=== PATIENT | male | born 1940 | race Caucasian/White ===

== ENCOUNTER 2016-05-10 09:41 | Outpatient (CLI) | payer OTHER ==
[~2016-05-10] VITALS: Ht 170.2 cm; Wt 96.4 kg
[~2016-05-10 09:41] MED LIST: ASPI-676 PO; BENA20TA48 PO; CARV3.1238 PO; OMEP40CA6 PO; SAW1CAPS3 PO; SMV40T PO; SULF-182 PO
[2016-05-10 10:00] VITALS: BP 144/69; PULSE 81; RESP 18; Ht 170.2 cm; Wt 96.4 kg
[2016-05-10] MEDS ORDERED: LOSA25TA5 PO (10:15)
--- NOTE | 2016-05-10 11:50 | CONS ---
[facility] INITIAL OUTPATIENT CONSULTATION NOTE DATE OF CONSULTATION: 05/10/2016 PLACE OF SERVICE: [facility] ASSESSMENT AND PLAN: A very pleasant 75-year-old gentleman well known to me from his prior emergency operation in September 2013 for colonic obstruction due to diverticulitis and no evidence of malignancy where the incision was complicated initially with a wound infection and then not surprisingly had a hernia develop within a year. Despite the fact that his hernia has been relatively stable it has become more symptomatic in nature and given the natural history of this process I have recommended that the patient strongly consider surgical intervention. I reviewed the options of surgical intervention including the operation in detail as well as the risks, benefits and alternatives. This included a detailed discussion of use of mesh and its accompanying complications that are possible. We also discussed the higher than normal risk of recurrence of hernia in this clinical setting. We also discussed in depth the option of not operating at this time and its concomitant risks, benefits and alternatives. After careful consideration, I believe that the patient understands and wishes to proceed with surgery. With above assessment, I recommend the followin. Repeat CT scan of abdomen and pelvis with IV and oral contrast. 2. Schedule the patient for elective laparoscopic and possible open incisional ventral hernia repair with possible use of mesh. 3. Follow up preoperative visit if indicated by above CT scan or if the patient wishes to further discuss along with family. 4. Discussion with Dr. Kirby regarding his cardiac risk, although, his note clearly states that there are no other interventions that are needed at this time. 5. Likely need for overnight observation in house given cardiac risk and for this reason we should get authorization for possible inpatient stay depending on the patient's course. Thank you again for allowing us to participate in the care of this very pleasant gentleman and his wonderful family. If there are any questions, please feel free to call me at [phone]. TOTAL VISIT TIME: 45 minutes of which more than half was spent in [id number] discussion with the patient as well as coordination of care between multiple physicians and providers. UPDATED CLINICAL SUMMARY: A very pleasant 75-year-old gentleman with comorbid issues of coronary artery disease and previous myocardial infarction, BMI of 33.3, and history of colonic obstruction due to diverticulitis status post emergency surgery at [facility] on 10/17/2013 where he underwent laparoscopic converted to open sigmoid colectomy with on-table lavage and primary anastomosis. He did reasonably well after this operation, although, he had a wound infection which we treated with dressing changes postoperatively. The patient subsequent to this has developed a bulge around the incision which on a CT scan of the abdomen and pelvis that was done on 05/18/2014 showed a small midline ventral pelvic hernia extending into the lower inferior pelvic pannus containing mesenteric fat as well as a loop of bowel without obstruction, incarceration or strangulation. Note that there was also no mass or lymphadenopathy and the sigmoid colon area appeared to be clean. There was also markedly enlarged prostate gland, which has been stable over time. The patient originally saw Dr. Anju Marie from [facility] in May 2014 where recommendation was made for surgical repair. Subsequent to this, the patient did not have an operation and presented electively to the office for further discussions about possible surgical repair. COMORBIDITIES: 1. Coronary artery disease with chronic ischemic heart disease without any evidence of ischemia or CHF symptoms. He was deemed eligible to undergo herniorrhaphy with low cardiac risk. Had a normal stress echo in 2014. 2. Chronic ischemic heart disease which is stable with medications. 3. Essential hypertension. 4. Hyperlipidemia. 5. Chronic obstructive pulmonary disease. 6. Chronic kidney disease stage II with GFR 60 to 89 mL per minute. 7. History of above-mentioned bowel obstruction due to diverticulitis, status post laparoscopic converted to open sigmoid colectomy with on-table lavage and primary anastomosis on 10/17/2013 at [facility] by me, complicated by incisional infection which was treated with dressing changes and secondary intention healing and then complicated within about a year with incisional hernia which has been symptomatic, but rather stable over time. 8. BMI 33.3. 9. History of diverticulosis in the past. 10. History of anemia. HISTORY OF PRESENT ILLNESS: The patient is a very pleasant 75-year-old gentleman well known to me from his admission to [facility] in September of 2013 where he had to have an emergency sigmoid colectomy due to large bowel obstruction. This was complicated by wound infection and then subsequent to this had an incisional hernia which was evaluated in 2014. He was kindly referred back to us for further consideration of surgical repair. Note that the patient also saw Dr. Anju Marie who also recommended surgical repair and had an extensive discussion with the patient regarding the risks and benefits of operative versus nonoperative management. Patient himself reports having discomfort in the right lower quadrant next to his incision. He does not report any episode of bowel obstruction and other than discomfort he has not had any other major problems from his hernia. He does feel a bulge and it is starting to affect the quality of his life. ALLERGIES: 1. BENAZEPRIL. 2. HALLUCINATIONS ON MORPHINE. MEDICATIONS: 1. Aspirin. 2. B12. 3. Carvedilol. 4. Losartan. 5. Omeprazole. 6. Saw palmetto. 7. Simvastatin. SOCIAL HISTORY: The patient is and lives by himself. He has family. He does not report any smoking, drinking, or intravenous drug abuse. He has smoked in the past and quit about 12 years ago. FAMILY HISTORY: No major medical, surgical or oncologic problems in the family. REVIEW OF SYSTEMS: Other than the above-mentioned, there are no other pertinent positives or pertinent negatives in a complete 14-point review of systems. PHYSICAL EXAMINATION: GENERAL: The patient appears to be a very pleasant gentleman of descent, appearing stated age, sitting in a chair comfortably and in no acute distress. BMI is 33.3. VITAL SIGNS: Temperature 98.1. Blood pressure 144/69. Pulse 81. Respiratory rate 18. Pulse oximetry 93% on room air. HEENT: Normocephalic and atraumatic. Extraocular muscles and hearing are grossly intact bilaterally and symmetrically. Sclerae are nonicteric. Oral cavity is clear; oral mucosa appeared to be pink and moist. Dentition: fair to poor with upper dentures in place. NECK: Supple. There is no lymphadenopathy or JVD. There is no submental, submandibular or supraclavicular lymphadenopathy. CHEST: Rises symmetrically with each breath; patient is breathing comfortably. There are no audible wheezes, rales or rhonchi on the gross exam. HEART: Pulse is regular and palpable on the right wrist. Capillary refill was normal. Carotid pulses are palpable bilaterally and symmetrically in the neck. EXTREMITIES: Lower extremities contain no pitting edema around the ankles bilaterally and symmetrically. ABDOMEN: There is a well-healed midline scar with no evidence of erythema, edema, discharge, but evidence of slight bulge in the caudal portion of the incision slightly to the right of the incision and bulging out with more Valsalva maneuvers. Abdomen is otherwise soft, nontender and nondistended and there are no peritoneal signs or guarding. There is no evidence of organomegaly , caput medusae, engorged subcutaneous veins, or ascites. SKIN: Appears to be pink and feels warm to touch. NEUROLOGIC: Awake, alert, and follows commands appropriately. LABORATORY DATA: On 05/06/2016 electrolytes showed potassium of 5.0, CO2 of 25 , albumin 4.2, creatinine 0.94. Bilirubin 0.4, AST 18, ALT 14, alkaline phosphatase 106. Bilirubin 0.4. GFR 78, lipid panels normal, parathyroid hormone 58 and considered normal. IMAGING: Reviewed above. Dictated By: LOBITO GARRISON MD KK/NTS Conf#: [id number] DID#: [id number] CC: KIEL MOREJON MD; ANJU MARIE MD; LINDSEY KIRBY MD;*EndCC* MTDD
--- NOTE | 2016-05-11 10:50 | PN ---
DATE: The patient is clinically stable. He has no abdominal complaints whatsoever. The procedure was described again to the patient and who had excellent understanding and are most anxious to proceed. The procedure is scheduled for 9 :30 tomorrow morning. Dictated By: CHRISTIANO ESPINO/OTONIEL Conf#: [id number] DID#: [id number] MTDD
== END 2016-05-10 16:48 | disposition home or self-care (01) ==
LOC: HPC 09:41
PROVIDERS: ATTEND Transplant Surgery
DX: I25.10 Atherosclerotic heart disease of native coronary artery without angina pectoris (principal); J44.9 Chronic obstructive pulmonary disease, unspecified; I12.9 Hypertensive chronic kidney disease with stage 1 through stage 4 chronic kidney disease, or unspecified chronic kidney disease; N18.2 Chronic kidney disease, stage 2 (mild); E78.5 Hyperlipidemia, unspecified; Z79.82 Long term (current) use of aspirin
CPT/HCPCS: G0463

== ENCOUNTER 2016-05-25 07:15 | Inpatient (IN) | payer OTHER ==
[~2016-05-25] VITALS: Ht 170.2 cm; Wt 96.0 kg
[2016-05-25] VITALS (24 sets, daily range): BP systolic 146–177; BP diastolic 71–86; PULSE 58–82; RESP 10–20; Ht 170.2 cm; Wt 96.0 kg
[2016-05-25] MEDS: D5W-0.45 NACL + KCL 20 MEQ 1,000 ML IV SCH ×3 (06:30→21:35)
[~2016-05-25 07:15] MED LIST changes: -BENA20TA48 PO; +CEFAZOLIN 2 GM/50 ML (PMX) 50 ML IVPB SCH; +LOSA25TA5 PO; +ROCURONIUM 50 MG INJ ONE; -SULF-182 PO
[2016-05-25] MEDS ORDERED: AMOX1TAB9 PO (08:34)
[2016-05-25] MEDS ORDERED: POLYMYXIN/BACITRACIN 1L IRRIG ONE (08:57)
[2016-05-25] MEDS ORDERED: LIDOCAINE 2% (SDV) 5 ML INJ ONE (09:05)
[2016-05-25] MEDS ORDERED: PROPOFOL 20 ML ONE (09:05)
[2016-05-25] MEDS ORDERED: BUPIVACAINE 0.25%/EPI (SDV) 30 ML INJ ONE (09:10)
--- NOTE | 2016-05-25 09:20 | HPN ---
Date/Time of Note Date/Time of Note DATE: 05/25/16 TIME: 09:20 Interval H&P Admission Note Pt. seen H&P reviewed: No system changes Pt. seen H&P reviewed. No system changes (I attest that I have seen and examined the patient and reviewed the operation in detail, as well as its risks , benefits and alternatives of the operation). I attest that I have seen and examined the patient and reviewed in detail the operation, and its associated risks, benefits and alternative. I have answered all the patient's questions to the best of my ability and the patient wishes to proceed. Please refer to rest of electronic medical record for additional updates. LOBITO GARRISON M.D. May 25, 2016 09:20
[2016-05-25] MEDS ORDERED: ATROPINE 1 MG/10 ML SYRINGE ONE (10:19)
[2016-05-25] MEDS ORDERED: LABETALOL HCL 20MG INJ ONE (10:33)
[2016-05-25] MEDS ORDERED: GLYCOPYRROLATE 1 MG INJ ONE (10:58)
[2016-05-25] MEDS ORDERED: CEFAZOLIN 1 GM INJ ONE (10:58)
[2016-05-25] MEDS ORDERED: METOPROLOL 5 MG INJ ONE (10:58)
[2016-05-25] MEDS ORDERED: NEOSTIGMINE 3 MG/3 ML SYRINGE ONE (10:58)
[2016-05-25] MEDS ORDERED: OXYCODONE/ACETAMINOPHEN (5/325) TAB PO PRN ×2 (13:00)
[2016-05-25] MEDS ORDERED: ONDANSETRON 4 MG INJ IV PRN (13:00)
[2016-05-25] MEDS ORDERED: FENTAnyl 50 MCG/ML VIAL IV PRN ×3 (13:00)
[2016-05-25] MEDS ORDERED: MEPERIDINE 25 MG INJ IV PRN (13:00)
[2016-05-25] MEDS ORDERED: EPHEDrine SULFATE 50 MG/5 ML SYG IV PRN (13:00)
[2016-05-25] MEDS ORDERED: HYDROmorphONE (0.2 MG/ML) 10ML SYG IV PRN ×3 (13:00)
[2016-05-25] MEDS ORDERED: hydrALAzine 20 MG INJ IV PRN (13:00)
[2016-05-25] MEDS: LABETALOL HCL 20MG INJ IV PRN ×2 (13:53→14:01)
--- NOTE | 2016-05-25 14:15 | OPR ---
Date/Time of Note Date/Time of Note DATE: 05/25/16 TIME: 14:15 Operative Report Operative\Procedure Findings [facility] INPATIENT [facility]PERATIVE NOTE PLACE OF SERVICE: [facility] DATE OF SURGERY: 05/25/2016 PREOPERATIVE DIAGNOSIS: 1. Incisional ventral hernia; history of bowel obstruction due to diverticulitis, status post laparoscopic converted to open sigmoid colectomy with on-table lavage and primary anastomosis on 10/17/2013 at [facility] by hi, complicated by incisional infection which was treated with dressing changes and secondary intention healing and then complicated within about a year with incisional hernia which has been symptomatic, but rather stable over time. 2. Coronary artery disease with chronic ischemic heart disease without any evidence of ischemia or CHF symptoms. He was deemed eligible to undergo herniorrhaphy with low cardiac risk. Had a normal stress echo in 2014. 3. Chronic ischemic heart disease which is stable with medications. 4. Essential hypertension. 5. Chronic obstructive pulmonary disease. 6. Chronic kidney disease stage II with GFR 60 to 89 mL per minute. 7. Hyperlipidemia. 8. BMI 33.3. 9. History of diverticulosis in the past. 10. History of anemia. POSTOPERATIVE DIAGNOSIS: 1. Incisional ventral hernia; history of bowel obstruction due to diverticulitis, status post laparoscopic converted to open sigmoid colectomy with on-table lavage and primary anastomosis on 10/17/2013 at [facility] by hi, complicated by incisional infection which was treated with dressing changes and secondary intention healing and then complicated within about a year with incisional hernia which has been symptomatic, but rather stable over time. 2. Coronary artery disease with chronic ischemic heart disease without any evidence of ischemia or CHF symptoms. He was deemed eligible to undergo herniorrhaphy with low cardiac risk. Had a normal stress echo in 2014. 3. Chronic ischemic heart disease which is stable with medications. 4. Essential hypertension. 5. Chronic obstructive pulmonary disease. 6. Chronic kidney disease stage II with GFR 60 to 89 mL per minute. 7. Hyperlipidemia. 8. BMI 33.3. 9. History of diverticulosis in the past. 10. History of anemia. OPERATION: Laparoscopic, converted to open complex repair of ventral incisional hernia with mesh, retrorectus repair (Ventralight ST 10.2 x 15.2 cm) SURGEON: Lobito Garrison M.D. YACHT HAND: None ANESTHESIA: General endotracheal tube anesthesia ANESTHESIOLOGIST: Antwan Hamm M.D. BRIEF SUMMARY: An otherwise uncomplicated but somewhat complex laparoscopic converted to open repair of ventral incisional hernia of the most caudal portion of the patient's incision was performed using retrorectus approach with mesh reinforcement with findings of 3 x 3 cm defect but in the lower rectus area requiring complex repair. UPDATED CLINICAL SUMMARY: A very pleasant 75-year-old gentleman with comorbid issues of coronary artery disease and previous myocardial infarction, BMI of 33.3, and history of colonic obstruction due to diverticulitis status post emergency surgery at [facility] on 10/17/2013 where he underwent laparoscopic converted to open sigmoid colectomy with on-table lavage and primary anastomosis. He did reasonably well after this operation, although, he had a wound infection which we treated with dressing changes postoperatively. The patient subsequent to this has developed a bulge around the incision which on a CT scan of the abdomen and pelvis that was done on 05/18/2014 showed a small midline ventral pelvic hernia extending into the lower inferior pelvic pannus containing mesenteric fat as well as a loop of bowel without obstruction, incarceration or strangulation. Note that there was also no mass or lymphadenopathy and the sigmoid colon area appeared to be clean. There was also markedly enlarged prostate gland, which has been stable over time. The patient originally saw Dr. Luke Martinez from [facility] in May 2014 where recommendation was made for surgical repair. Subsequent to this, the patient did not have an operation and presented electively to the office for further discussions about possible surgical repair. COMORBIDITIES: 1. Coronary artery disease with chronic ischemic heart disease without any evidence of ischemia or CHF symptoms. He was deemed eligible to undergo herniorrhaphy with low cardiac risk. Had a normal stress echo in 2014. 2. Chronic ischemic heart disease which is stable with medications. 3. Essential hypertension. 4. Hyperlipidemia. 5. Chronic obstructive pulmonary disease. 6. Chronic kidney disease stage II with GFR 60 to 89 mL per minute. 7. History of above-mentioned bowel obstruction due to diverticulitis, status post laparoscopic converted to open sigmoid colectomy with on-table lavage and primary anastomosis on 10/17/2013 at [facility] by me, complicated by incisional infection which was treated with dressing changes and secondary intention healing and then complicated within about a year with incisional hernia which has been symptomatic, but rather stable over time. 8. BMI 33.3. 9. History of diverticulosis in the past. 10. History of anemia. BRIEF HISTORY: The patient is a very pleasant 75-year-old gentleman who is well- known to me presenting with incisional ventral hernia. This was certainly due to patient's complex surgical history as mentioned above and certainly was helped by the postoperative infection of the patient had at that time. The patient has been symptomatic from the hernia and at this point, I had recommended that the patient undergoes a laparoscopic, possible open repair of this hernia, possibly with mesh. I met with the patient (no family present during my initial discussions with the patient but then I reviewed everything with them in the preoperative area) and counseled them regarding the possible options of treatment. We reviewed the operation in detail as well as the risks, benefits, alternatives, and expected outcomes of this operation. After careful consideration of all the risks, benefits, and alternatives, the patient and family appeared to understand those risks and wished to proceed with surgery. For a detailed report of my consultation with patient and family, please refer to my separate consultation note. STATEMENT OF THE INFORMED CONSENT: The patient and family appeared to understand the risks of the operation to include, but not be limited to risk of postoperative pain and scar tissue, possible infection or bleeding requiring other interventions such as opening the wound, placement of drainage catheters, or other operative interventions; possible injury to surrounding to structures including bowel, bladder, bile duct, or blood vessels, or solid organs such as liver, kidney, or pancreas requiring other interventions or procedures; possible recurrence of the ventral hernia, infection of the wound, or even infection of the mesh, causing significant increase in morbidity and mortality and requiring multiple interventions including but not limited to, placement of drainage catheters, imaging studies, as well as operative interventions; possible other source of sepsis such as urinary tract infections or pneumonias, or other sources of potentially life threatening problems such as deep venous thrombus formation causing pulmonary embolism, myocardial arrhythmias and infarctions, and even . We also briefly discussed the potential need to receive blood products and their potential complications of blood transfusion reactions, transmission of infections, or other complications. After careful consideration of all their options, the patient and family appeared to understand and wished to proceed with surgery. DESCRIPTION OF PROCEDURE: After obtaining informed consent, the patient was brought into the operating room and was placed in a normal supine position, where successful general endotracheal tube anesthesia was performed. The patient 's abdominal skin was prepped and draped, from the nipple line down to the level of the groins, in the usual sterile fashion. Intravenous access was already in place, and appropriately chosen and dosed prophylactic intravenous antimicrobials were administered. We then called a surgical time-out where patient's identification, date of , nature of the operation, allergies, presence of intravenous antimicrobials, presence of needed equipment, and any other concerns were reviewed and agreed upon by all members of the operating room team. We then started the operation by placing a 5-mm skin incision in the leftt- upper quadrant, subcostal midclavicular line, and introduced a 5-mm [employer] trocar into the peritoneal space, visualizing all the layers of the abdominal wall as we entered. Note that there was no indication of any injury to underlying structures once we entered the peritoneum. We insufflated the abdominal cavity to a maximum pressure of 15 mmHg, again, confirmed lack of any injury to underlying structures prior to visualizing the rest of the abdominal cavity. We found significant amount of adhesions in the abdominal cavity which was expected from the patient's complex previous surgical history. There were no good windows for continuation with laparoscopic approach and for this reason I abandoned the laparoscopic approach and proceeded to open the most caudal portion of the skin incision approximately 10 cm in the infraumbilical space using scalpel to go through the skin and then very careful dissection with cautery as well as cold scissors to then delineate the midline fascia. Using very meticulous technique we open the lower portion of the fascia and dissected the bowel from underneath the abdominal wall using cold scissors. We were able to identify the right lower fascial defect which was approximately 3 x 3 cm in the area of the anterior rectus sheath. We then developed the plane the anterior rectus sheath from the underlying muscle in a circumferential fashion 360 around the open fascial defect. Once we had adequate margins (approximately 3 cm at a minimum circumferentially), we closed the underlying peritoneum followed by reapproximation of the rectus muscles in the midline in the suprapubic area. Care was taken not to injure the bladder or any other underlying structures. We then washed the wounds with copious amounts of normal saline and then placed a Ventralight ST mesh (10.2 x 15.2 cm) above the muscle layer and then closed the anterior rectus sheath after appropriate dissection was made in the subcutaneous fat in order to create a tension-free closure of the fascia using interrupted #1 PDS sutures. We grabbed the midline with the #1 PDS sutures while keeping the mesh flat throughout the closure process. We also fixed the corners of the mesh under direct visualization using 2-0 PDS suture through the anterior rectus muscle having the mesh secured in place. This all went very well without any undue tension on the fascia. We then washed the area with copious amounts normal saline and reapproximated the bottom layer of the fat in order to obliterate the potential space prior to closure of the skin using running 4-0 Monocryl suture. We also closed the initial 5 mm skin incision site with 4-0 Monocryl suture and injected all incisions with quarter percent Marcaine with epinephrine. Light dressing was then applied. At the end of the operation, both the sponge count and needle count were reportedly correct x2. The patient tolerated the procedure without any reported complications. ESTIMATED BLOOD LOSS: Less than 10 mL. BLOOD OR BLOOD PRODUCT TRANSFUSIONS: None to my knowledge. SPECIMENS: None. COMPLICATIONS: None. DISPOSITION: Recovery area. Disclaimer: Inadvertent spelling and grammatical errors are likely due to EHR/ dictation software use and do not reflect on the quality of delivered patient care. LOBITO GARRSION M.D. May 25, 2016 14:15
[2016-05-25] MEDS ORDERED: BISACODYL 10 MG SUPP PR PRN ×2 (17:00→18:00)
[2016-05-25] MEDS ORDERED: DOCUSATE SODIUM 100 MG CAP PO PRN ×2 (17:00→18:00)
[2016-05-25] MEDS ORDERED: D5W-0.45 NACL + KCL 20 MEQ 1,000 ML IV SCH (17:35)
[2016-05-25] MEDS ORDERED: NA PHOSPHATE/BIPHOS 133 ML ENEMA PR PRN (18:00)
[2016-05-25] MEDS ORDERED: HYDROmorphONE 1 MG/ML SYG IV PRN (18:00)
[2016-05-25] MEDS ORDERED: HYDROCODONE/APAP (5/325) TAB PO PRN ×4 (18:00→19:00)
[2016-05-25] MEDS: HYDROmorphONE 1 MG/ML SYG IV PRN (19:42)
[2016-05-25] MEDS: ONDANSETRON 4 MG INJ IV PRN (21:25)
[2016-05-26] VITALS (8 sets, daily range): BP systolic 137–179; BP diastolic 65–86; PULSE 90–99; RESP 18–22
[2016-05-26] MEDS: HYDROmorphONE 1 MG/ML SYG IV PRN (04:43)
[2016-05-26] MEDS: ONDANSETRON 4 MG INJ IV PRN ×3 (04:43→17:25)
[2016-05-26 04:54] LABS: ADD SCAN DIFF NO
[2016-05-26 05:00] LABS: ABNORMAL IP MESSAGE 1; BASOPHILS % 0.1 % (0.0-2.0); EOSINOPHILS % 0.2 % (0.0-7.0); HEMOGLOBIN 13.8 g/dl (14.0-18.0); LYMPHOCYTES # 1.7 10^3/ul (0.8-2.9); LYMPHOCYTES % 10.6 % (15.0-51.0); MEAN CORPUSCULAR HEMOGLOBIN 31.2 pg (29.0-33.0); MEAN CORPUSCULAR HGB CONC 32.9 g/dl (32.0-37.0); MEAN CORPUSCULAR VOLUME 94.8 fl (82.0-101.0); MEAN PLATELET VOLUME 10.1 fl (7.4-10.4); MONOCYTE # 1.9 10^3/ul (0.3-0.9); NEUTROPHIL # 11.9 10^3/ul (1.6-7.5); NEUTROPHILS % 76.8 % (39.0-77.0); PLATELET COUNT 191 10^3/UL (140-415); RED BLOOD COUNT 4.43 10^6/ul (4.70-6.10); RED CELL DISTRIBUTION WIDTH 12.6 % (11.5-14.5); WHITE BLOOD COUNT 15.5 10^3/ul (4.8-10.8)
[2016-05-26 05:11] LABS: INR 1.13; PROTIME 14.5 Sec (12.2-14.2); PT RATIO 1.1
[2016-05-26 05:12] LABS: PARTIAL THROMBOPLASTIN TIME 29.9 Sec (25.0-35.0)
[2016-05-26 05:13] LABS: ALBUMIN 3.5 g/dl (3.3-4.9)
[2016-05-26 05:14] LABS: POTASSIUM 4.3 mmol/L (3.5-5.1)
[2016-05-26 05:16] LABS: ALBUMIN/GLOBULIN RATIO 0.97; BILIRUBIN,INDIRECT 0.5 mg/dl (0-1.1); BILIRUBIN,TOTAL 0.5 mg/dl (0.2-1.3); CREATININE 0.8 mg/dl (0.61-1.24); TOTAL PROTEIN 7.1 g/dl (6.1-8.1)
[2016-05-26 05:17] LABS: CALCIUM 8.4 mg/dl (8.4-10.2); MAGNESIUM 1.8 mg/dl (1.7-2.5); PHOSPHORUS 2.9 mg/dl (2.5-4.9)
[2016-05-26] MEDS: hydrALAzine 20 MG INJ IV PRN ×2 (05:19→19:28)
[2016-05-26] MEDS: AL HYDROX/MG HYDROX/SIMETH 30 ML CUP PO PRN (07:05)
[2016-05-26] MEDS ORDERED: hydrALAzine 20 MG INJ IV PRN (07:30)
[2016-05-26] MEDS: D5W-0.45 NACL + KCL 20 MEQ 1,000 ML IV SCH ×3 (07:36→17:25)
--- NOTE | 2016-05-26 08:24 | CONS ---
DATE OF ADMISSION: 05/25/2016 DATE OF CONSULTATION: REASON FOR CONSULTATION: Medical management. HISTORY OF PRESENT ILLNESS: The patient is 75-year-old male with a history of coronary artery diseas e, hypertension, dyslipidemia, COPD and a history of bowel obstruction due to diverticulitis, who is now status post laparoscopic converted to open complex repair of a ventral incisional hernia with [facility]. A consult was placed for medical management. The patient currently complains of some nausea a nd also some burning sensation on urination. He denied any chest pain or shortness of breath. His vitals show that his blood pressure is not within goal, but the rest of his vitals are stable. REVIEW OF SYSTEMS: A 12-point review of systems was performed and negative except as mentioned in t he HPI. PAST MEDICAL HISTORY: As per HPI. PAST SURGICAL HISTORY: As per HPI. SOCIAL HISTORY: Denied a history of tobacco, alcohol or illicit drug use. ALLERGIES: BENAZEPRIL. HOME MEDICATION: 1. Coreg. 2. Losartan. 3. Zocor. 4. Aspirin. 5. Prilosec. 6. Saw palmetto. PHYSICAL EXAMINATION: VITAL SIGNS: Blood pressure 146/77, heart rate 73, respiratory rate 20, temperature 98.5, oxygen sa turation 95% on room air. GENERAL: The patient is slightly sleepy, but arousable. He looks slightly uncomfortable. HEENT: No obvious head deformity. Pupils are reactive to light. Extraocular muscles are intact. CARDIOVASCULAR: Regular rate and rhythm. No extra sounds. LUNGS: Clear anteriorly. ABDOMEN: Surgical site covered. There is tenderness to touch. No rigidity. EXTREMITIES: No edema. LABORATORY: Currently pending. IMPRESSION: 1. Open ventral incisional hernia repair. 2. Hypertension. Not at goal. 3. History of coronary artery disease. 4. History of chronic obstructive pulmonary disease. 5. History of dyslipidemia. PLAN: Continue current medical management. Continue to adjust his pain medication as needed. Will adjust his antihypertensives for better blood pressure control, since it is not at goal. Will foll ow up on basic labs in the morning. Given his complaint of a burning sensation on urination, will s end a urinalysis. Correct electrolytes as needed. Management of his surgical needs per Dr. Ca. Dictated By: KAUSHIK LASSITER/OTONIEL Conf#: [id number] [facility]#: [id number]
[2016-05-26] MEDS ORDERED: LOSARTAN 25 MG TAB PO SCH (09:00)
[2016-05-26] MEDS ORDERED: FAMOTIDINE 20 MG INJ IV SCH (09:00)
[2016-05-26] MEDS: LOSARTAN 25 MG TAB PO SCH (09:06)
[2016-05-26] MEDS: ENOXAPARIN 40 MG/0.4 ML SYG SC SCH (09:08)
[2016-05-26] MEDS: FAMOTIDINE 20 MG INJ IV SCH ×2 (09:09→20:51)
[2016-05-26] MEDS ORDERED: ALBUTEROL/IPRATROPIUM (NEB) 3 ML AMP HHN PRN (12:00)
--- NOTE | 2016-05-26 12:39 | CONS ---
DATE OF ADMISSION: 05/25/2016 DATE OF CONSULTATION: 05/26/2016 CONSULT PROGRESS NOTE SUBJECTIVE: The patient had some nausea symptoms earlier today, given Zofran. Per nursing staff is having minimal p.o. intake. Has not passed gas yet. Otherwise stable. Blood pressure is under be tter control. OBJECTIVE: VITAL SIGNS: Temperature max 99.9, pulse 73 to 102, respirations 18 to 20, blood pressure is 176 to 141 systolic/86 to 70 diastolic, saturating at 94% to 97% on 2 liters nasal cannula. GENERAL: The patient lying in bed, no acute distress. HEENT: Pupils equal, round, react to light. Extraocular muscles intact. NECK: Supple, no thyromegaly. LUNGS: Clear to auscultation bilaterally. CARDIOVASCULAR: S1, S2 heard. No rubs or gallops. ABDOMEN: Hypoactive bowel sounds, slightly distended. No rebound or guarding. MUSCULOSKELETAL: No lower extremity edema bilaterally. NEUROLOGIC: No focal deficits. LABORATORY DATA: WBC 15.5, hemoglobin 13.8, hematocrit 42, platelets 191. Comprehensive metabolic panel was normal. Coags essentially normal. ASSESSMENT AND PLAN: A 75-year-old male with past medical history of coronary artery disease, hyper tension, high cholesterol, chronic obstructive pulmonary disease, prior bowel obstruction from diver ticulitis, who is: 1. Status post open ventral incisional hernia repair, postop day #1. Continue current medical man agement per primary care team including pain control medications, physical therapy. 2. Essential hypertension, slightly improved. Continue losartan and Coreg. 3. History of coronary artery disease. Continue to monitor for now. 4. History of chronic obstructive pulmonary disease. DuoNeb p.r.n. 5. Leukocytosis, likely reactive secondary to the surgery, although he did have a temperature of 99 .9. We will follow up UA and urine culture results as well. Continue to monitor for now. If worse ns, consider further workup for that. 6. Gastrointestinal prophylaxis: Pepcid. 7. Deep venous thrombosis prophylaxis: Lovenox. 8. High cholesterol. Continue statin. We will continue to follow along with you. Dictated By: PAZ WORLEY Conf#: [id number] DID#: [id number]
[2016-05-26 14:03] LABS: ADD UMIC YES; URINE BILIRUBIN (Dip) NEGATIVE (NEGATIVE); URINE BLOOD (Dip) 1+ (NEGATIVE); URINE COLOR LT. YELLOW (YELLOW); URINE GLUCOSE (Dip) NEGATIVE (NEGATIVE); URINE KETONES (Dip) NEGATIVE (NEGATIVE); URINE LEUKOCYTE ESTERASE (Dip) NEGATIVE (NEGATIVE); URINE NITRITE (Dip) NEGATIVE (NEGATIVE); URINE TOTAL PROTEIN (Dip) NEGATIVE (NEGATIVE); URINE UROBILINOGEN (Dip) 0.2 E.U./dL (0.1-1.0)
[2016-05-26 14:24] LABS: BACTERIA,URINE RARE
--- NOTE | 2016-05-26 15:48 | PN ---
Date/Time of Note Date/Time of Note DATE: 05/26/16 TIME: 15:44 Assessment/Plan Lines/Catheters IV Catheter Type (from Nrsg): Peripheral IV Crouch in Place (from Nrsg): No Assessment/Plan Assessment/Plan [facility] Progress Note Date of Service: 05/26/16 Today's Impression & Plan: Overall stable. Issues with pain control, lack of adequate return of bowel function or oral intake, urinary retention post open and complex hernia repair. Will need to stay inhouse for now. With above assessment, I've recommended the following for today: 1. Keep inhouse 2. Labs in am 3. Increase activity 4. Increase ICS Thank you again for your great care of this very pleasant patient and wonderful family. If there are any questions, please feel free to call me at [phone]. TOTAL VISIT TIME: 20 minutes of which more than half was spent in [id number] discussion with the patient, possibly including family, as well as coordination of care between multiple physicians and providers. Disclaimer: Inadvertent spelling or grammatical errors are likely due to EHR/ dictation software use and do not reflect on the overall quality of patient care. Updated Clinical Summary: A very pleasant 75-year-old gentleman with comorbid issues of coronary artery disease and previous myocardial infarction, BMI of 33.3, and history of colonic obstruction due to diverticulitis status post emergency surgery at [facility] on 10/17/2013 where he underwent laparoscopic converted to open sigmoid colectomy with on-table lavage and primary anastomosis. He did reasonably well after this operation, although, he had a wound infection which we treated with dressing changes postoperatively. The patient subsequent to this has developed a bulge around the incision which on a CT scan of the abdomen and pelvis that was done on 05/18/2014 showed a small midline ventral pelvic hernia extending into the lower inferior pelvic pannus containing mesenteric fat as well as a loop of bowel without obstruction, incarceration or strangulation. Note that there was also no mass or lymphadenopathy and the sigmoid colon area appeared to be clean. There was also markedly enlarged prostate gland, which has been stable over time. The patient originally saw Dr. Luke Martinez from [facility] in May 2014 where recommendation was made for surgical repair. Subsequent to this, the patient did not have an operation and presented electively to the office for further discussions about possible surgical repair. S/p an uncomplicated but somewhat complex laparoscopic converted to open repair of ventral incisional hernia of the most caudal portion of the patient's incision using retrorectus approach with mesh reinforcement with findings of 3 x 3 cm defect but in the lower rectus area requiring complex repair on 05/26/16 at [facility]. COMORBIDITIES: 1. Coronary artery disease with chronic ischemic heart disease without any evidence of ischemia or CHF symptoms. He was deemed eligible to undergo herniorrhaphy with low cardiac risk. Had a normal stress echo in 2015. 2. Chronic ischemic heart disease which is stable with medications. 3. Essential hypertension. 4. Hyperlipidemia. 5. Chronic obstructive pulmonary disease. 6. Chronic kidney disease stage II with GFR 60 to 89 mL per minute. 7. History of above-mentioned bowel obstruction due to diverticulitis, status post laparoscopic converted to open sigmoid colectomy with on-table lavage and primary anastomosis on 10/17/2013 at [facility] by me, complicated by incisional infection which was treated with dressing changes and secondary intention healing and then complicated within about a year with incisional hernia which has been symptomatic, but rather stable over time. 8. BMI 33.3. 9. History of diverticulosis in the past. 10. History of anemia. 11. S/p an uncomplicated but somewhat complex laparoscopic converted to open repair of ventral incisional hernia of the most caudal portion of the patient's incision using retrorectus approach with mesh reinforcement with findings of 3 x 3 cm defect but in the lower rectus area requiring complex repair on 05/26/16 at [facility]. Subjective: No major events or complaints other than above; + incisional abd pain and under control with medications; had nausea yesterday, but improved today; no v/d; no sob or cp; - flatus; - BM and normal; - activity Objective: Vitals: See below Exam: GENERAL: On exam, the patient was sitting in a chair and appeared to be comfortable and in no acute distress. ABDOMEN: Soft, nontender and nondistended. Incision dressings are clean, dry and intact without any evidence of underlying erythema, edema, discharge, or hernia. There are no peritoneal signs or guarding. SKIN: Skin appears to be pink and feels warm to touch. NEUROLOGIC: Patient is awake, alert, and follows commands appropriately. Exam/Review of Systems Vital Signs Vitals Vital Signs Date Time Temp Pulse Resp B/P Pulse Ox O2 Delivery O2 Flow Rate FiO2 05/26/16 08:03 98.0 102 18 142/67 94 05/26/16 06:00 Nasal Cannula 05/25/16 21:00 2.0 Intake and Output 05/25/16 05/25/16 05/26/16 15:00 23:00 07:00 Intake Total 1900 ml 180 ml 1450 ml Output Total 120 ml 650 ml Balance 1780 ml 180 ml 800 ml Results Result Diagram: 05/26/16 0420 05/26/16 0420 LOBITO GARRISON M.D. May 26, 2016 15:48
[2016-05-26] MEDS: ATORVASTATIN 20 MG TAB PO SCH (20:51)
[2016-05-26] MEDS ORDERED: NON-FORMULARY/PATIENT OWN MED (Simvastatin 40 MG) PO SCH (21:00)
[2016-05-27 06:38] LABS: ADD SCAN DIFF NO
[2016-05-27] MEDS: AL HYDROX/MG HYDROX/SIMETH 30 ML CUP PO PRN ×2 (06:49→20:51)
[2016-05-27 06:51] LABS: ABNORMAL IP MESSAGE 1; BASOPHIL # 0.1 10^3/ul (0.0-0.1); BASOPHILS % 0.3 % (0.0-2.0); EOSINOPHILS # 0.1 10^3/ul (0.0-0.5); EOSINOPHILS % 0.5 % (0.0-7.0); HEMATOCRIT 40.3 % (42.0-52.0); LYMPHOCYTES % 11.9 % (15.0-51.0); MEAN CORPUSCULAR HEMOGLOBIN 31.1 pg (29.0-33.0); MEAN CORPUSCULAR HGB CONC 32.3 g/dl (32.0-37.0); MEAN CORPUSCULAR VOLUME 96.4 fl (82.0-101.0); MEAN PLATELET VOLUME 10.5 fl (7.4-10.4); MONOCYTE # 2.3 10^3/ul (0.3-0.9); MONOCYTES % 13.4 % (0.0-11.0); NEUTROPHIL # 12.5 10^3/ul (1.6-7.5); NEUTROPHILS % 73.4 % (39.0-77.0); PLATELET COUNT 188 10^3/UL (140-415); RED BLOOD COUNT 4.18 10^6/ul (4.70-6.10); RED CELL DISTRIBUTION WIDTH 12.9 % (11.5-14.5); WHITE BLOOD COUNT 17.1 10^3/ul (4.8-10.8)
[2016-05-27 07:00] VITALS: BP 153/73; RESP 20
[2016-05-27 07:27] LABS: PHOSPHORUS 2.2 mg/dl (2.5-4.9)
[2016-05-27 07:30] LABS: POTASSIUM 4.4 mmol/L (3.5-5.1)
[2016-05-27 07:32] LABS: CREATININE 0.82 mg/dl (0.61-1.24)
[2016-05-27 07:33] LABS: CALCIUM 8.4 mg/dl (8.4-10.2)
[2016-05-27] MEDS: D5W-0.45 NACL + KCL 20 MEQ 1,000 ML IV SCH ×2 (08:30→20:47)
[2016-05-27] MEDS: NA PHOSPHATE/BIPHOS 133 ML ENEMA PR SCH ×2 (09:00→21:00)
[2016-05-27] MEDS: DOCUSATE SODIUM 100 MG CAP PO SCH ×2 (10:19→21:00)
[2016-05-27] MEDS: BISACODYL 10 MG SUPP PR SCH ×2 (10:19→21:00)
[2016-05-27] MEDS: FAMOTIDINE 20 MG INJ IV SCH ×2 (10:20→20:46)
[2016-05-27] MEDS: LOSARTAN 25 MG TAB PO SCH (10:23)
[2016-05-27] MEDS: ENOXAPARIN 40 MG/0.4 ML SYG SC SCH (11:18)
--- NOTE | 2016-05-27 13:09 | CONS ---
Date/Time of Note Date/Time of Note DATE: 05/27/16 TIME: 13:07 Consult Date/Type/Reason Admit Date/Time May 25, 2016 at 15:45 Initial Consult Date Subjective Pt tolerating diet. No fevers. Objective Vital Signs Date Time Temp Pulse Resp B/P Pulse Ox O2 Delivery O2 Flow Rate FiO2 05/27/16 10:30 Nasal Cannula 2.0 05/27/16 07:00 99.2 99 20 153/73 99 Intake and Output 05/26/16 05/26/16 05/27/16 15:00 23:00 07:00 Intake Total 250 ml 1960 ml 950 ml Output Total 1375 ml 1200 ml Balance 250 ml 585 ml -250 ml Exam GENERAL: The patient lying in bed, no acute distress. HEENT: Pupils equal, round, react to light. Extraocular muscles intact. NECK: Supple, no thyromegaly. LUNGS: Clear to auscultation bilaterally. CARDIOVASCULAR: S1, S2 heard. No rubs or gallops. ABDOMEN: Hypoactive bowel sounds, slightly distended. No rebound or guarding. MUSCULOSKELETAL: No lower extremity edema bilaterally. NEUROLOGIC: No focal deficits. Results/Medications Result Diagram: 05/27/16 0504 05/27/16 0504 Results 24 hrs Laboratory Tests Test 05/27/16 05:04 White Blood Count 17.1 H Red Blood Count 4.18 L Hemoglobin 13.0 L Hematocrit 40.3 L Mean Corpuscular Volume 96.4 Mean Corpuscular Hemoglobin 31.1 Mean Corpuscular Hemoglobin Concent 32.3 Red Cell Distribution Width 12.9 Platelet Count 188 Mean Platelet Volume 10.5 H Neutrophils % 73.4 Lymphocytes % 11.9 L Monocytes % 13.4 H Eosinophils % 0.5 Basophils % 0.3 Nucleated Red Blood Cells % 0.0 Neutrophils # 12.5 H Lymphocytes # 2.0 Monocytes # 2.3 H Eosinophils # 0.1 Basophils # 0.1 Nucleated Red Blood Cells # 0.0 Sodium Level 132 L Potassium Level 4.4 Chloride Level 104 Carbon Dioxide Level 24 Anion Gap 8 Blood Urea Nitrogen 11 Creatinine 0.82 Glucose Level 111 # Calcium Level 8.4 Phosphorus Level 2.2 L Magnesium Level 2.0 B-Type Natriuretic Peptide 360 Medications Current Medications Potassium Chloride/Dextrose/ Sod Cl (D5-1/2ns + KCl 20 Meq) 1,000 ml @ 100 mls/ hr Q10H IV Last administered on 05/26/16 17:25; Admin Dose 100 MLS/HR; Start 05/25/16 at 06:30 Acetaminophen/ Hydrocodone Bitart ([place] (5/325)) 1 tab Q4H PRN PO PAIN LEVEL 4 -6 Last administered on 05/26/16 09:06; Admin Dose 1 TAB; Start 05/25/16 at 19: 00 Acetaminophen/ Hydrocodone Bitart ([place] (5/325)) 2 tab Q4H PRN PO PAIN LEVEL 7 -10; Start 05/25/16 at 19:00 Docusate Sodium (Colace) 100 mg BID PRN PO CONSTIPATION; Start 05/25/16 at 17: 00 Bisacodyl (Dulcolax Supp) 10 mg BID PRN [place] CONSTIPATION; Start 05/25/16 at 17: 00 Hydromorphone HCl (Dilaudid) 0.5 mg Q2 PRN IV PAIN; Start 05/25/16 at 18:00 Hydromorphone HCl (Dilaudid) 1 mg Q2 PRN IV PAIN Last administered on 04:43; Admin Dose 1 MG; Start 05/25/16 at 18:00 Sodium Biphosphate/ Sodium Phosphate (Fleet Enema) 133 ml BID PRN NM CONSTIPATION; Start 05/25/16 at 18:00 Enoxaparin Sodium (Lovenox) 40 mg DAILY SC Last administered on 05/27/16 11:18 ; Admin Dose 40 MG; Start 05/26/16 at 09:00 Sodium Biphosphate/ Sodium Phosphate (Fleet Enema) 133 ml BID NM ; Start at 09:00 Bisacodyl (Dulcolax Supp) 10 mg BID NM Last administered on 05/27/16 10:19; Admin Dose 10 MG; Start 05/27/16 at 09:00 Docusate Sodium (Colace) 100 mg BID PO Last administered on 05/27/16 10:19; Admin Dose 100 MG; Start 05/27/16 at 09:00 Hydralazine HCl (Apresoline) 10 mg Q4H PRN IV ELEVATED SYSTOLIC BP Last administered on 05/26/16 19:28; Admin Dose 10 MG; Start 05/25/16 at 21:00 Carvedilol (Coreg) 3.125 mg BID PO Last administered on 05/27/16 10:23; Admin Dose 3.125 MG; Start 05/25/16 at 21:00 Losartan Potassium (Cozaar) 25 mg DAILY PO Last administered on 05/27/16 10:23 ; Admin Dose 25 MG; Start 05/26/16 at 09:00 Ondansetron HCl (Zofran Inj) 4 mg Q6H PRN IV NAUSEA AND/OR VOMITING Last administered on 05/26/16 17:25; Admin Dose 4 MG; Start 05/25/16 at 21:00 Famotidine (Pepcid Iv) 20 mg BID IV Last administered on 05/26/16 20:51; Admin Dose 20 MG; Start 05/26/16 at 09:00 Al Hydrox/Mg Hydrox/Simethicone (Mag-Al Plus) 30 ml Q6H PRN PO GASTROINTESTINAL UPSET Last administered on 05/27/16 06:49; Admin Dose 30 ML; Start 05/26/16 at 07:00 Hydralazine HCl (Apresoline) 10 mg Q6H PRN IV SBP > 160; Start 05/26/16 at 07: 30 Atorvastatin Calcium 20 mg 20 mg DAILY@21 PO Last administered on 05/26/16 20: 51; Admin Dose 20 MG; Start 05/26/16 at 21:00 Sodium Phosphate/ Sodium Chloride (Sodium Phosphate/NS) 255 ml @ 63.75 mls/ hr ONCE ONCE IVPB ; Start 05/27/16 at 14:30; Stop 05/27/16 at 18:29 Assessment/Plan Chief Complaint/Hosp Course ASSESSMENT AND PLAN: A 75-year-old male with past medical history of coronary artery disease, hypertension, high cholesterol, chronic obstructive pulmonary disease, prior bowel obstruction from diverticulitis, who is: 1. Status post open ventral incisional hernia repair, postop day #2. Continue current medical management per primary care team including pain control medications, physical therapy. 2. Essential hypertension - in high nL range. -Continue losartan and Coreg. 3. History of coronary artery disease. Continue to monitor for now. 4. History of chronic obstructive pulmonary disease. DuoNeb p.r.n. 5. Leukocytosis, likely reactive secondary to the surgery. Ua and Ucx neg thus far - Continue to monitor for now. - If worsens, or fever develops, consider further workup for that. 6. Gastrointestinal prophylaxis: Pepcid. 7. Deep venous thrombosis prophylaxis: Lovenox. 8. High cholesterol. Continue statin. We will continue to follow along with you. Problems: PAZ WILLIS May 27, 2016 13:09
[2016-05-27] MEDS ORDERED: SODIUM PHOSPHATE 15 MMOL in SOD CHLORIDE 0.9% 250 ML IVPB ONE (14:30)
[2016-05-27 19:00] VITALS: BP 142/66; RESP 19
[2016-05-27] MEDS: ATORVASTATIN 20 MG TAB PO SCH (20:49)
--- NOTE | 2016-05-27 21:49 | PN ---
Date/Time of Note Date/Time of Note DATE: 05/27/16 TIME: 19:57 Assessment/Plan Lines/Catheters IV Catheter Type (from Nrsg): Peripheral IV Crouch in Place (from Nrsg): No Assessment/Plan Assessment/Plan [facility] Progress Note Date of Service: 05/27/16 Today's Impression & Plan: Overall stable and improved. Pain control improved, but not optimal. WBC elevated, but no tachy, no fevers, and primarily monocyte elevation. + bowel activity, but also slightly distended. Urine culture negative. With above assessment, I've recommended the following for today: 1. Keep inhouse 2. Labs in am 3. Increase activity 4. Increase ICS Thank you again for your great care of this very pleasant patient and wonderful family. If there are any questions, please feel free to call me at [phone]. TOTAL VISIT TIME: 20 minutes of which more than half was spent in [id number] discussion with the patient, possibly including family, as well as coordination of care between multiple physicians and providers. Disclaimer: Inadvertent spelling or grammatical errors are likely due to EHR/ dictation software use and do not reflect on the overall quality of patient care. Updated Clinical Summary: A very pleasant 75-year-old gentleman with comorbid issues of coronary artery disease and previous myocardial infarction, BMI of 33.3, and history of colonic obstruction due to diverticulitis status post emergency surgery at [facility] on 10/17/2013 where he underwent laparoscopic converted to open sigmoid colectomy with on-table lavage and primary anastomosis. He did reasonably well after this operation, although, he had a wound infection which we treated with dressing changes postoperatively. The patient subsequent to this has developed a bulge around the incision which on a CT scan of the abdomen and pelvis that was done on 05/18/2014 showed a small midline ventral pelvic hernia extending into the lower inferior pelvic pannus containing mesenteric fat as well as a loop of bowel without obstruction, incarceration or strangulation. Note that there was also no mass or lymphadenopathy and the sigmoid colon area appeared to be clean. There was also markedly enlarged prostate gland, which has been stable over time. The patient originally saw Dr. Luke Martinez from [facility] in May 2014 where recommendation was made for surgical repair. Subsequent to this, the patient did not have an operation and presented electively to the office for further discussions about possible surgical repair. S/p an uncomplicated but somewhat complex laparoscopic converted to open repair of ventral incisional hernia of the most caudal portion of the patient's incision using retrorectus approach with mesh reinforcement with findings of 3 x 3 cm defect but in the lower rectus area requiring complex repair on 05/26/16 at [facility]. COMORBIDITIES: 1. Coronary artery disease with chronic ischemic heart disease without any evidence of ischemia or CHF symptoms. He was deemed eligible to undergo herniorrhaphy with low cardiac risk. Had a normal stress echo in 2015. 2. Chronic ischemic heart disease which is stable with medications. 3. Essential hypertension. 4. Hyperlipidemia. 5. Chronic obstructive pulmonary disease. 6. Chronic kidney disease stage II with GFR 60 to 89 mL per minute. 7. History of above-mentioned bowel obstruction due to diverticulitis, status post laparoscopic converted to open sigmoid colectomy with on-table lavage and primary anastomosis on 10/17/2013 at [facility] by me, complicated by incisional infection which was treated with dressing changes and secondary intention healing and then complicated within about a year with incisional hernia which has been symptomatic, but rather stable over time. 8. BMI 33.3. 9. History of diverticulosis in the past. 10. History of anemia. 11. S/p an uncomplicated but somewhat complex laparoscopic converted to open repair of ventral incisional hernia of the most caudal portion of the patient's incision using retrorectus approach with mesh reinforcement with findings of 3 x 3 cm defect but in the lower rectus area requiring complex repair on 05/26/16 at [facility]. Subjective: No major events or complaints other than above; + incisional abd pain and under control with medications; had some nausea again, but no vomiting; no v/d; no sob or cp; + flatus; + BM and normal; + activity Objective: Vitals: See below Exam: GENERAL: On exam, the patient was laying in bed and appeared to be comfortable and in no acute distress. ABDOMEN: Soft, nontender and nondistended. Incision dressings d/c'd and incisions are clean, dry and intact without any evidence of erythema, edema, discharge, or hernia. There are no peritoneal signs or guarding. SKIN: Skin appears to be pink and feels warm to touch. NEUROLOGIC: Patient is awake, alert, and follows commands appropriately. Exam/Review of Systems Vital Signs Vitals Vital Signs Date Time Temp Pulse Resp B/P Pulse Ox O2 Delivery O2 Flow Rate FiO2 05/27/16 10:30 Nasal Cannula 2.0 05/27/16 07:00 99.2 99 20 153/73 99 Intake and Output 05/26/16 05/26/16 05/27/16 15:00 23:00 07:00 Intake Total 250 ml 1960 ml 950 ml Output Total 1375 ml 1200 ml Balance 250 ml 585 ml -250 ml Results Result Diagram: 05/27/16 0504 05/27/16 0504 LOBITO GARRISON M.D. May 27, 2016 21:49
[2016-05-27 23:55] VITALS: BP 156/68; PULSE 96; RESP 18
[2016-05-28 05:09] LABS: ADD SCAN DIFF NO
[2016-05-28 05:14] LABS: ABNORMAL IP MESSAGE 1; BASOPHILS % 0.2 % (0.0-2.0); EOSINOPHILS # 0.1 10^3/ul (0.0-0.5); LYMPHOCYTES # 2.3 10^3/ul (0.8-2.9); LYMPHOCYTES % 16.6 % (15.0-51.0); MEAN CORPUSCULAR HEMOGLOBIN 31.7 pg (29.0-33.0); MEAN CORPUSCULAR HGB CONC 33.3 g/dl (32.0-37.0); MONOCYTE # 2.1 10^3/ul (0.3-0.9); MONOCYTES % 15.1 % (0.0-11.0); NEUTROPHIL # 9.3 10^3/ul (1.6-7.5); NEUTROPHILS % 66.7 % (39.0-77.0); PLATELET COUNT 190 10^3/UL (140-415); RED BLOOD COUNT 3.79 10^6/ul (4.70-6.10); RED CELL DISTRIBUTION WIDTH 12.5 % (11.5-14.5); WHITE BLOOD COUNT 13.9 10^3/ul (4.8-10.8)
[2016-05-28] MEDS: AL HYDROX/MG HYDROX/SIMETH 30 ML CUP PO PRN (06:19)
[2016-05-28] MEDS: D5W-0.45 NACL + KCL 20 MEQ 1,000 ML IV SCH (06:19)
[2016-05-28 07:34] VITALS: BP 155/70; RESP 18
[2016-05-28] MEDS: HYDROmorphONE 1 MG/ML SYG IV PRN ×6 (08:52→23:10)
[2016-05-28] MEDS: BISACODYL 10 MG SUPP PR SCH ×2 (08:53→20:07)
[2016-05-28] MEDS: LOSARTAN 25 MG TAB PO SCH (08:53)
[2016-05-28] MEDS: DOCUSATE SODIUM 100 MG CAP PO SCH ×2 (08:53→20:05)
[2016-05-28] MEDS: NA PHOSPHATE/BIPHOS 133 ML ENEMA PR SCH ×2 (09:00→21:00)
[2016-05-28] MEDS: ENOXAPARIN 40 MG/0.4 ML SYG SC SCH (10:43)
[2016-05-28] MEDS: ONDANSETRON 4 MG INJ IV PRN (10:45)
--- NOTE | 2016-05-28 11:18 | CONS ---
Date/Time of Note Date/Time of Note DATE: 05/28/16 TIME: 11:16 Consult Date/Type/Reason Admit Date/Time May 25, 2016 at 15:45 Subjective Pt had temp 100.3 last night. Objective Vital Signs Date Time Temp Pulse Resp B/P Pulse Ox O2 Delivery O2 Flow Rate FiO2 05/28/16 08:00 Nasal Cannula 3.0 05/28/16 07:34 98.5 80 18 155/70 93 Intake and Output 05/27/16 05/27/16 05/28/16 15:00 23:00 07:00 Intake Total 255 ml 2150 ml Output Total 1200 ml Balance 255 ml 950 ml Exam GENERAL: The patient lying in bed, no acute distress. HEENT: Pupils equal, round, react to light. Extraocular muscles intact. NECK: Supple, no thyromegaly. LUNGS: Clear to auscultation bilaterally. CARDIOVASCULAR: S1, S2 heard. No rubs or gallops. ABDOMEN: Hypoactive bowel sounds, slightly distended. No rebound or guarding. MUSCULOSKELETAL: No lower extremity edema bilaterally. NEUROLOGIC: No focal deficits. Results/Medications Result Diagram: 05/28/16 0423 05/27/16 0504 Results 24 hrs Laboratory Tests Test 05/28/16 04:23 White Blood Count 13.9 H Red Blood Count 3.79 L Hemoglobin 12.0 L Hematocrit 36.0 L Mean Corpuscular Volume 95.0 Mean Corpuscular Hemoglobin 31.7 Mean Corpuscular Hemoglobin Concent 33.3 Red Cell Distribution Width 12.5 Platelet Count 190 Mean Platelet Volume 10.0 Neutrophils % 66.7 Lymphocytes % 16.6 Monocytes % 15.1 H Eosinophils % 1.0 Basophils % 0.2 Nucleated Red Blood Cells % 0.0 Neutrophils # 9.3 H Lymphocytes # 2.3 Monocytes # 2.1 H Eosinophils # 0.1 Basophils # 0.0 Nucleated Red Blood Cells # 0.0 Medications Current Medications Acetaminophen/ Hydrocodone Bitart ([place] (5/325)) 1 tab Q4H PRN PO PAIN LEVEL 4 -6 Last administered on 05/26/16t 09:06; Admin Dose 1 TAB; Start 05/25/16 at 19: 00 Acetaminophen/ Hydrocodone Bitart ([place] (5/325)) 2 tab Q4H PRN PO PAIN LEVEL 7 -10; Start 05/25/16 at 19:00 Docusate Sodium (Colace) 100 mg BID PRN PO CONSTIPATION; Start 05/25/16 at 17: 00 Bisacodyl (Dulcolax Supp) 10 mg BID PRN [place] CONSTIPATION; Start 05/25/16 at 17: 00 Hydromorphone HCl (Dilaudid) 0.5 mg Q2 PRN IV PAIN; Start 05/25/16 at 18:00 Hydromorphone HCl (Dilaudid) 1 mg Q2 PRN IV PAIN Last administered on 05/28/16 10:46; Admin Dose 1 MG; Start 05/25/16 at 18:00 Sodium Biphosphate/ Sodium Phosphate (Fleet Enema) 133 ml BID PRN PA CONSTIPATION; Start 05/25/16 at 18:00 Enoxaparin Sodium (Lovenox) 40 mg DAILY SC Last administered on 05/28/16 10:43 ; Admin Dose 40 MG; Start 05/26/16 at 09:00 Sodium Biphosphate/ Sodium Phosphate (Fleet Enema) 133 ml BID PA ; Start at 09:00 Bisacodyl (Dulcolax Supp) 10 mg BID PA Last administered on 05/28/16 08:53; Admin Dose 10 MG; Start 05/27/16 at 09:00 Docusate Sodium (Colace) 100 mg BID PO Last administered on 05/28/16 08:53; Admin Dose 100 MG; Start 05/27/16 at 09:00 Hydralazine HCl (Apresoline) 10 mg Q4H PRN IV ELEVATED SYSTOLIC BP Last administered on 05/26/16 19:28; Admin Dose 10 MG; Start 05/25/16 at 21:00 Carvedilol (Coreg) 3.125 mg BID PO Last administered on 05/28/16 08:53; Admin Dose 3.125 MG; Start 05/25/16 at 21:00 Losartan Potassium (Cozaar) 25 mg DAILY PO Last administered on 05/28/16 08:53 ; Admin Dose 25 MG; Start 05/26/16 at 09:00 Ondansetron HCl (Zofran Inj) 4 mg Q6H PRN IV NAUSEA AND/OR VOMITING Last administered on 05/28/16 10:45; Admin Dose 4 MG; Start 05/25/16 at 21:00 Al Hydrox/Mg Hydrox/Simethicone (Mag-Al Plus) 30 ml Q6H PRN PO GASTROINTESTINAL UPSET Last administered on 05/28/16 06:19; Admin Dose 30 ML; Start 05/26/16 at 07:00 Hydralazine HCl (Apresoline) 10 mg Q6H PRN IV SBP > 160; Start 05/26/16 at 07: 30 Atorvastatin Calcium (Lipitor) 20 mg DAILY@21 PO Last administered on 05/27/16 20:49; Admin Dose 20 MG; Start 05/26/16 at 21:00 Famotidine (Pepcid) 40 mg HS PO ; Start 05/28/16 at 21:00 Assessment/Plan Chief Complaint/Hosp Course ASSESSMENT AND PLAN: A 75-year-old male with past medical history of coronary artery disease, hypertension, high cholesterol, chronic obstructive pulmonary disease, prior bowel obstruction from diverticulitis, who is: 1. Status post open ventral incisional hernia repair, postop day # 3. Continue current medical management per primary care team including pain control medications, physical therapy. 2. Essential hypertension - in high nL range. -Continue losartan and Coreg. 3. History of coronary artery disease. Continue to monitor for now. 4. History of chronic obstructive pulmonary disease. DuoNeb p.r.n. 5. Leukocytosis, likely reactive secondary to the surgery. Ua and Ucx neg thus far. But + fever last night 100.3 - will get ID consult. - continue to monitor for now. 6. Gastrointestinal prophylaxis: Pepcid. 7. Deep venous thrombosis prophylaxis: Lovenox. 8. High cholesterol. Continue statin. We will continue to follow along with you. Problems: PAZ WILLIS May 28, 2016 11:18
[2016-05-28 12:00] VITALS: BP 125/65; PULSE 88; RESP 18
--- NOTE | 2016-05-28 14:46 | CONS ---
DATE OF ADMISSION: 05/25/2016 DATE OF CONSULTATION: 05/26/2016 REASON FOR CONSULTATION: Antibiotic management. HISTORY OF PRESENT ILLNESS: Hugo Quinn is a 75-year-old male with numerous problems who c omes in for an open ventral incisional hernia repair, and is being seen for antibiotic management. His past problems include: 1. Coronary artery disease. 2. Hypertension. 3. Dyslipidemia. 4. COPD. 5. History of bowel obstruction due to diverticulitis. 6. Status post laparoscopic converted to open complex repair of ventral incisional hernia with mesh by Dr. Tr Ca. HOSPITAL COURSE: On admission, the patient had a white count of 15.5, H and H of 13.8 and 42, plate let count of 191,000. White count today is 13.9. BUN and creatinine is 11/0.8. Urine was negative for nitrites and leukocyte esterase, 1+ hemoglobin. Urine culture is negative. The patient underw ent a laparoscopic converted to open complex repair of ventral incisional hernia with mesh, ventral rectus repair on 05/25/2016. On 05/26/2016, he was seen again by Dr. Ca who felt there were no major events or complaints, aside from the pain of the surgery. He had flatus and bowel movements o n 05/26/2016. Today, he was seen by Dr. Honeycutt; white count was 13.9. BUN and creatinine 11/0.82. T he patient is currently off antibiotics. He does have leukocytosis, which they feel is likely react aurelia to surgery. Urinalysis and cultures were negative. Temperature last night was 100.3. PAST MEDICAL HISTORY: Operations as outlined. FAMILY HISTORY: Noncontributory. SOCIAL HISTORY: Does not smoke, drink or abuse drugs. ALLERGIES: BENAZEPRIL. MEDICATIONS: Per chart. REVIEW OF SYSTEMS: Noncontributory. PHYSICAL EXAMINATION: GENERAL: The patient is a well-developed, well-nourished male who is alert, responsive, in no acute distress. VITAL SIGNS: Stable. He is afebrile. SKIN: Without generalized rash. HEENT: Within normal limits. NECK: Supple. LYMPH NODES: None palpable. CHEST: Decreased breath sounds at the bases. HEART: Without murmur or gallop. ABDOMEN: Soft, nontender, without organosplenomegaly or masses. The incision dressings were discon tinued. The incision is clean, dry and intact. There is no evidence of erythema, edema, discharge or hernia. No peritoneal signs or guarding. EXTREMITIES: Without cyanosis, clubbing, or edema. RECTAL AND GENITAL: Deferred. NEUROLOGIC: No focal neurological abnormalities. IMPRESSION AND PLAN: At this point, I do not believe the patient is septic. The surgery itself see ms to be under control, and I think we will observe him. No blood cultures were done at this point. If he spikes fevers, then will go ahead and do that. His T-max was 100.3 on 05/27/2016, but curre ntly he is afebrile. I will dictate my findings to the hospitalist and to Dr. Tr Ca. Dictated By: GERDA ALARCON MD, JD/OTONIEL Conf#: [id number] DID#: [id number]
[2016-05-28] MEDS ORDERED: PROMETHAZINE/CODEINE 5ML CUP PO ONE (18:30)
[2016-05-28] MEDS: ATORVASTATIN 20 MG TAB PO SCH (20:06)
[2016-05-28 20:38] VITALS: BP 162/73; RESP 18
[2016-05-28] MEDS ORDERED: FAMOTIDINE 20 MG TAB PO SCH (21:00)
[2016-05-28] MEDS: PROMETHAZINE/CODEINE 5ML CUP PO PRN (22:34)
[2016-05-28 22:54] VITALS: BP 188/84; RESP 20
[2016-05-28 23:08] VITALS: BP 189/84
[2016-05-28] MEDS: hydrALAzine 20 MG INJ IV PRN (23:10)
[2016-05-28 23:25] VITALS: BP 164/67
[2016-05-29 00:30] VITALS: BP 142/69
[2016-05-29 05:25] LABS: ADD SCAN DIFF NO
[2016-05-29 05:31] LABS: ABNORMAL IP MESSAGE 1; BASOPHILS % 0.2 % (0.0-2.0); EOSINOPHILS # 0.4 10^3/ul (0.0-0.5); EOSINOPHILS % 3.3 % (0.0-7.0); HEMATOCRIT 38.3 % (42.0-52.0); HEMOGLOBIN 12.4 g/dl (14.0-18.0); LYMPHOCYTES # 2.5 10^3/ul (0.8-2.9); LYMPHOCYTES % 20.2 % (15.0-51.0); MEAN CORPUSCULAR HEMOGLOBIN 31.1 pg (29.0-33.0); MEAN CORPUSCULAR HGB CONC 32.4 g/dl (32.0-37.0); MEAN PLATELET VOLUME 9.8 fl (7.4-10.4); MONOCYTE # 1.8 10^3/ul (0.3-0.9); MONOCYTES % 14.6 % (0.0-11.0); NEUTROPHIL # 7.7 10^3/ul (1.6-7.5); NEUTROPHILS % 61.5 % (39.0-77.0); PLATELET COUNT 222 10^3/UL (140-415); RED BLOOD COUNT 3.99 10^6/ul (4.70-6.10); RED CELL DISTRIBUTION WIDTH 12.4 % (11.5-14.5); WHITE BLOOD COUNT 12.5 10^3/ul (4.8-10.8)
[2016-05-29 05:43] LABS: ALBUMIN 3.3 g/dl (3.3-4.9); POTASSIUM 4.3 mmol/L (3.5-5.1)
[2016-05-29 05:45] LABS: ALBUMIN/GLOBULIN RATIO 0.91; BILIRUBIN,INDIRECT 0.5 mg/dl (0-1.1); BILIRUBIN,TOTAL 0.5 mg/dl (0.2-1.3); CREATININE 0.79 mg/dl (0.61-1.24); TOTAL PROTEIN 6.9 g/dl (6.1-8.1)
[2016-05-29 05:46] LABS: CALCIUM 8.5 mg/dl (8.4-10.2); MAGNESIUM 2.1 mg/dl (1.7-2.5); PHOSPHORUS 3.2 mg/dl (2.5-4.9)
[2016-05-29 05:59] LABS: INR 1.12; PROTIME 14.4 Sec (12.2-14.2); PT RATIO 1.1
[2016-05-29 06:00] LABS: PARTIAL THROMBOPLASTIN TIME 33.1 Sec (25.0-35.0)
[2016-05-29] MEDS: PROMETHAZINE/CODEINE 5ML CUP PO PRN ×2 (06:45→19:37)
[2016-05-29] MEDS: DOCUSATE SODIUM 100 MG CAP PO SCH (07:50)
[2016-05-29] MEDS: LOSARTAN 25 MG TAB PO SCH (07:52)
[2016-05-29] MEDS: ENOXAPARIN 40 MG/0.4 ML SYG SC SCH (07:57)
[2016-05-29] MEDS: NA PHOSPHATE/BIPHOS 133 ML ENEMA PR SCH (09:00)
[2016-05-29 09:01] VITALS: BP 142/69; RESP 18
[2016-05-29] MEDS: BISACODYL 10 MG SUPP PR SCH (11:36)
--- NOTE | 2016-05-29 11:43 | PN ---
Date/Time of Note Date/Time of Note DATE: 05/29/16 TIME: 11:36 Assessment/Plan VTE Prophylaxis VTE Prophylaxis Intervention: LMWH Lines/Catheters IV [facility] [place] Urinary Cath still in place: No Assessment/Plan Assessment/Plan A 75-year-old male with past medical history of coronary artery disease, hypertension, high cholesterol, chronic obstructive pulmonary disease, prior bowel obstruction from diverticulitis, who is: 1. Status post open ventral incisional hernia repair, postop day # 4. 2. Essential hypertension - improved control 3. Known coronary artery disease. Stable / no chest pain 4. Chronic obstructive pulmonary disease. Stable / No cough / DuoNeb p.r.n. 5. Leukocytosis, likely reactive secondary to the surgery. 6. High cholesterol: on statin 7. History of above-mentioned bowel obstruction due to diverticulitis, status post open sigmoid colectomy with and primary anastomosis on 10/17/2013 PLAN: * Continue post op mgt per surgery * Continue PRN pain control/ antiemetics/ antipyretics/ supportive care * Plan for pancultures and empiric abx of fevers recurr * Gastrointestinal prophylaxis: Pepcid. * Deep venous thrombosis prophylaxis: Lovenox. Thanks for the Consult. We will follow with you. Subjective 24 Hr Interval Summary Free Text/Dictation c/o constipation reports focal pain RLQ which is likely neuropathic Exam/Review of Systems Vital Signs Vitals Vital Signs Date Time Temp Pulse Resp B/P Pulse Ox O2 Delivery O2 Flow Rate FiO2 05/29/16 09:01 98.0 84 18 142/69 95 05/29/16 07:54 Nasal Cannula 2.0 Intake and Output 05/28/16 05/28/16 05/29/16 15:00 23:00 07:00 Intake Total 1300 ml 1150 ml Output Total 750 ml 1100 ml Balance 550 ml 50 ml Exam GENERAL: The patient lying in bed, no acute distress. HEENT: Pupils equal, round, react to light. Extraocular muscles intact. NECK: Supple, no thyromegaly. LUNGS: Clear to auscultation bilaterally. CARDIOVASCULAR: S1, S2 heard. No rubs or gallops. ABDOMEN: Hypoactive bowel sounds, slightly distended. No rebound or guarding, surgical scar healing well and open to air, no lesion in RLQ MUSCULOSKELETAL: No lower extremity edema bilaterally. NEUROLOGIC: No focal deficits. Results Result Diagram: 05/29/16 0435 05/29/16 0435 Results 24 hrs Laboratory Tests Test 05/29/16 04:30 05/29/16 04:35 Prothrombin Time 14.4 H Prothrombin Time Ratio 1.1 INR International Normalized Ratio 1.12 Activated Partial Thromboplast Time 33.1 White Blood Count 12.5 H Red Blood Count 3.99 L Hemoglobin 12.4 L Hematocrit 38.3 L Mean Corpuscular Volume 96.0 Mean Corpuscular Hemoglobin 31.1 Mean Corpuscular Hemoglobin Concent 32.4 Red Cell Distribution Width 12.4 Platelet Count 222 Mean Platelet Volume 9.8 Neutrophils % 61.5 Lymphocytes % 20.2 Monocytes % 14.6 H Eosinophils % 3.3 Basophils % 0.2 Nucleated Red Blood Cells % 0.0 Neutrophils # 7.7 H Lymphocytes # 2.5 Monocytes # 1.8 H Eosinophils # 0.4 Basophils # 0.0 Nucleated Red Blood Cells # 0.0 Sodium Level 133 L Potassium Level 4.3 Chloride Level 103 Carbon Dioxide Level 26 Anion Gap 8 Blood Urea Nitrogen 12 Creatinine 0.79 Glucose Level 120 Lactic Acid Level 0.8 Calcium Level 8.5 Phosphorus Level 3.2 Magnesium Level 2.1 Total Bilirubin 0.5 Direct Bilirubin 0.00 Indirect Bilirubin 0.5 Aspartate Amino Transf (AST/SGOT) 33 Alanine Aminotransferase (ALT/SGPT) 37 Alkaline Phosphatase 95 B-Type Natriuretic Peptide 257 Total Protein 6.9 Albumin 3.3 Globulin 3.60 H Albumin/Globulin Ratio 0.91 Medications Medications Current Medications Acetaminophen/ Hydrocodone Bitart ([place] (5/325)) 1 tab Q4H PRN PO PAIN LEVEL 4 -6 Last administered on 05/26/16 09:06; Admin Dose 1 TAB; Start 05/25/16 at 19: 00 Acetaminophen/ Hydrocodone Bitart ([place] (5/325)) 2 tab Q4H PRN PO PAIN LEVEL 7 -10 Last administered on 05/29/16 07:51; Admin Dose 2 TAB; Start 05/25/16 at 19: 00 Docusate Sodium (Colace) 100 mg BID PRN PO CONSTIPATION; Start 05/25/16 at 17: 00 Bisacodyl (Dulcolax Supp) 10 mg BID PRN ID CONSTIPATION; Start 05/25/16 at 17: 00 Hydromorphone HCl (Dilaudid) 0.5 mg Q2 PRN IV PAIN; Start 05/25/16 at 18:00 Hydromorphone HCl (Dilaudid) 1 mg Q2 PRN IV PAIN Last administered on 05/28/16 23:10; Admin Dose 1 MG; Start 05/25/16 at 18:00 Sodium Biphosphate/ Sodium Phosphate ([place]) 133 ml BID PRN ID CONSTIPATION; Start 05/25/16 at 18:00 Enoxaparin Sodium (Lovenox) 40 mg DAILY SC Last administered on 05/29/16 07:57 ; Admin Dose 40 MG; Start 05/26/16 at 09:00 Sodium Biphosphate/ Sodium Phosphate (Fleet Enema) 133 ml BID ID ; Start at 09:00 Bisacodyl (Dulcolax Supp) 10 mg BID ID Last administered on 05/28/16 20:07; Admin Dose 10 MG; Start 05/27/16 at 09:00 Docusate Sodium (Colace) 100 mg BID PO Last administered on 05/29/16 07:50; Admin Dose 100 MG; Start 05/27/16 at 09:00 Hydralazine HCl (Apresoline) 10 mg Q4H PRN IV ELEVATED SYSTOLIC BP Last administered on 05/28/16 23:10; Admin Dose 10 MG; Start 05/25/16 at 21:00 Carvedilol (Coreg) 3.125 mg BID PO Last administered on 05/29/16 07:51; Admin Dose 3.125 MG; Start 05/25/16 at 21:00 Losartan Potassium (Cozaar) 25 mg DAILY PO Last administered on 05/29/16 07:52 ; Admin Dose 25 MG; Start 05/26/16 at 09:00 Ondansetron HCl (Zofran Inj) 4 mg Q6H PRN IV NAUSEA AND/OR VOMITING Last administered on 05/28/16 10:45; Admin Dose 4 MG; Start 05/25/16 at 21:00 Al Hydrox/Mg Hydrox/Simethicone (Mag-Al Plus) 30 ml Q6H PRN PO GASTROINTESTINAL UPSET Last administered on 05/28/16 06:19; Admin Dose 30 ML; Start 05/26/16 at 07:00 Hydralazine HCl (Apresoline) 10 mg Q6H PRN IV SBP > 160; Start 05/26/16 at 07: 30 Atorvastatin Calcium (Lipitor) 20 mg DAILY@21 PO Last administered on 05/28/16 20:06; Admin Dose 20 MG; Start 05/26/16 at 21:00 Famotidine (Pepcid) 40 mg HS PO Last administered on 05/28/16 22:34; Admin Dose 40 MG; Start 05/28/16 at 21:00 Promethazine HCl/ Codeine (Phenergan/ Codeine) 5 ml Q4H PRN PO COUGH Last administered on 05/29/16 06:45; Admin Dose 5 ML; Start 05/28/16 at 18:30 NALINI DE LA CRUZ May 29, 2016 11:43
[2016-05-29] MEDS ORDERED: POLYETHYLENE GLYCOL 17 GM PACKET PO SCH (12:00)
[2016-05-29] MEDS ORDERED: LOSARTAN 25 MG TAB PO ONE (12:00)
[2016-05-29 12:32] VITALS: BP 139/77; PULSE 89
[2016-05-29] MEDS ORDERED: MAGNESIUM CITRATE 300 ML BTL PO ONE (13:00)
--- NOTE | 2016-05-29 16:12 | PN ---
DATE: 05/29/2016 SUBJECTIVE: No events overnight. The patient is alert, feels good, looks comfortable, no fevers. WBC 12.5, no shift, no bands. BUN 12, creatinine 0.79. PHYSICAL EXAMINATION: GENERAL: Well-developed elderly man who is alert, in no distress. HEENT: Head atraumatic, normocephalic. Sclerae anicteric. Buccal mucosa pink. NECK: Supple. CHEST: Rise symmetrical. Breath sounds clear. HEART: S1, S2. ABDOMEN: Soft, bowel tones present. EXTREMITIES: Incision intact some bruising present. EXTREMITIES: Without cyanosis or edema. ASSESSMENT: 1. Status post incisional ventral hernia repair on 05/25/2016. 2. Reactive leukocytosis. 3. Hypertension. 4. Chronic obstructive pulmonary disease. 5. History of bowel obstruction. PLAN: The patient remains stable off antibiotics. Continue observing, encourage ambulation. Incen tive spirometry. Follow recommendations of surgery. Dictated By: ERMA HAINES GRAIN RECEIVER for GERDA LUNDBERG/OTONIEL Conf#: [id number] DID#: [id number]
[2016-05-29] MEDS: AL HYDROX/MG HYDROX/SIMETH 30 ML CUP PO PRN (18:11)
--- NOTE | 2016-05-29 18:48 | PDOCDIS ---
Discharge Instructions CONDITION Patient Condition: Good HOME CARE INSTRUCTIONS: Diet Instructions: Regular ACTIVITY: Activity Restrictions: Slowly Increase Activity Rest between Activity Avoid heavy lifting Do not operate Machinery Do not operate Power Tool Avoid Heavy Housework Bathing Restrictions: Shower OTHER ORDERS: Other Orders: "Please call [phone] if any of fever, nausea, vomiting, discharge from wound, wound redness, increase or sudden pain, blood in stool or vomit, or any other unusual signs or symptoms. Also, please call the same number in a few days to schedule an appointment for your follow up visit. Patient may remove dressings tomorrow. Showers OK starting tomorrow. No swimming , hot tub or bath for 2 weeks. No lifting more than 25 lbs for 8 weeks." LOBITO GARRISON M.D. May 29, 2016 18:48
--- NOTE | 2016-05-29 18:52 | DS ---
Date/Time of Note Date/Time of Note DATE: 05/29/16 TIME: 18:50 Discharge Summary Admission/Discharge Info Admit Date/Time May 25, 2016 at 15:45 Discharge Date/Time Final Diagnosis 1. Coronary artery disease with chronic ischemic heart disease without any evidence of ischemia or CHF symptoms. He was deemed eligible to undergo herniorrhaphy with low cardiac risk. Had a normal stress echo in 2014. 2. Chronic ischemic heart disease which is stable with medications. 3. Essential hypertension. 4. Hyperlipidemia. 5. Chronic obstructive pulmonary disease. 6. Chronic kidney disease stage II with GFR 60 to 89 mL per minute. 7. History of above-mentioned bowel obstruction due to diverticulitis, status post laparoscopic converted to open sigmoid colectomy with on-table lavage and primary anastomosis on 10/17/2013 at [facility] by me, complicated by incisional infection which was treated with dressing changes and secondary intention healing and then complicated within about a year with incisional hernia which has been symptomatic, but rather stable over time. 8. BMI 33.3. 9. History of diverticulosis in the past. 10. History of anemia. 11. S/p an uncomplicated but somewhat complex laparoscopic converted to open repair of ventral incisional hernia of the most caudal portion of the patient's incision using retrorectus approach with mesh reinforcement with findings of 3 x 3 cm defect but in the lower rectus area requiring complex repair on 05/26/16 at [facility]. Patient Condition: Good Hospital Course Updated Clinical Summary: A very pleasant 75-year-old gentleman with comorbid issues of coronary artery disease and previous myocardial infarction, BMI of 33.3, and history of colonic obstruction due to diverticulitis status post emergency surgery at [facility] on 10/17/2013 where he underwent laparoscopic converted to open sigmoid colectomy with on-table lavage and primary anastomosis. He did reasonably well after this operation, although, he had a wound infection which we treated with dressing changes postoperatively. The patient subsequent to this has developed a bulge around the incision which on a CT scan of the abdomen and pelvis that was done on 05/18/2014 showed a small midline ventral pelvic hernia extending into the lower inferior pelvic pannus containing mesenteric fat as well as a loop of bowel without obstruction, incarceration or strangulation. Note that there was also no mass or lymphadenopathy and the sigmoid colon area appeared to be clean. There was also markedly enlarged prostate gland, which has been stable over time. The patient originally saw Dr. Luke Martinez from [facility] in May 2014 where recommendation was made for surgical repair. Subsequent to this, the patient did not have an operation and presented electively to the office for further discussions about possible surgical repair. S/p an uncomplicated but somewhat complex laparoscopic converted to open repair of ventral incisional hernia of the most caudal portion of the patient's incision using retrorectus approach with mesh reinforcement with findings of 3 x 3 cm defect but in the lower rectus area requiring complex repair on 05/26/16 at [facility]. Patient underwent an otherwise uncomplicated but somewhat complex laparoscopic converted to open repair of ventral incisional hernia of the most caudal portion of the patient's incision using retrorectus approach with mesh reinforcement with findings of 3 x 3 cm defect but in the lower rectus area requiring complex repair on 05/26/16 at [facility].. For a detailed report, please see my op note from same date. Post op, patient did very well without any evidence for major post-operative complication or wound problems. By the time of discharge, patient was tolerating a regular diet, had adequate pain control on oral pain medications, had shown return of bowel activity and was clinically stable. He is therefore being discharged today. In addition to his home meds, I wrote him for: 1. [place] (5/325) 60 tabs and no refill 2. Colace 25 and 2 3. Dulcolax 10 and 3 COMORBIDITIES: 1. Coronary artery disease with chronic ischemic heart disease without any evidence of ischemia or CHF symptoms. He was deemed eligible to undergo herniorrhaphy with low cardiac risk. Had a normal stress echo in 2014. 2. Chronic ischemic heart disease which is stable with medications. 3. Essential hypertension. 4. Hyperlipidemia. 5. Chronic obstructive pulmonary disease. 6. Chronic kidney disease stage II with GFR 60 to 89 mL per minute. 7. History of above-mentioned bowel obstruction due to diverticulitis, status post laparoscopic converted to open sigmoid colectomy with on-table lavage and primary anastomosis on 10/17/2013 at [facility] by me, complicated by incisional infection which was treated with dressing changes and secondary intention healing and then complicated within about a year with incisional hernia which has been symptomatic, but rather stable over time. 8. BMI 33.3. 9. History of diverticulosis in the past. 10. History of anemia. 11. S/p an uncomplicated but somewhat complex laparoscopic converted to open repair of ventral incisional hernia of the most caudal portion of the patient's incision using retrorectus approach with mesh reinforcement with findings of 3 x 3 cm defect but in the lower rectus area requiring complex repair on 05/26/16 at [facility]. His discharge instructions include the following: "Please call [phone] if any of fever, nausea, vomiting, discharge from wound, wound redness, increase or sudden pain, blood in stool or vomit, or any other unusual signs or symptoms. Also, please call the same number in a few days to schedule an appointment for your follow up visit. Patient may remove dressings tomorrow. Showers OK starting tomorrow. No swimming , hot tub or bath for 2 weeks. No lifting more than 25 lbs for 8 weeks." ASSESSMENT AND PLAN: A 75-year-old male with past medical history of coronary artery disease, hypertension, high cholesterol, chronic obstructive pulmonary disease, prior bowel obstruction from diverticulitis, who is: 1. Status post open ventral incisional hernia repair, postop day # 3. Continue current medical management per primary care team including pain control medications, physical therapy. 2. Essential hypertension - in high nL range. -Continue losartan and Coreg. 3. History of coronary artery disease. Continue to monitor for now. 4. History of chronic obstructive pulmonary disease. DuoNeb p.r.n. 5. Leukocytosis, likely reactive secondary to the surgery. Ua and Ucx neg thus far. But + fever last night 100.3 - will get ID consult. - continue to monitor for now. 6. Gastrointestinal prophylaxis: Pepcid. 7. Deep venous thrombosis prophylaxis: Lovenox. 8. High cholesterol. Continue statin. We will continue to follow along with you. Home Meds Reported Medications Amoxicillin/Potassium Clav (Amox-Clav 500-125 mg Tablet) 500-125 mg Tab, 1 TAB PO BID for 20 Days, TAB 05/25/16 Losartan Potassium* (Losartan Potassium*) 25 Mg Tablet, 25 MG PO DAILY, TAB 05/10/16 Simvastatin (Simvastatin) 40 Mg Tablet, 40 MG PO HS, TAB 03/18/14 Omeprazole* (Omeprazole*) 40 Mg Capsule.dr, 40 MG PO DAILY, CAP 03/18/14 Sawpalmtofrtxt-Zinc Picolinate (Saw Vandiver Capsule) 1 Cap Capsule, 1 CAP PO BID, 0 Refills 12/18/09 Aspirin (Arianna Child) 81 Mg Chew, 81 MG PO DAILY 11/29/09 Carvedilol* (Coreg*) 3.125 Mg Tablet, 3.125 MG PO BID, 0 Refills 11/29/09 Pending Labs Laboratory Tests Test 05/29/16 04:30 05/29/16 04:35 Prothrombin Time 14.4Sec (12.2-14.2) Prothrombin Time Ratio 1.1 INR International Normalized Ratio 1.12 Activated Partial Thromboplast Time 33.1Sec (25.0-35.0) White Blood Count 12.510^3/ul (4.8-10.8) Red Blood Count 3.9910^6/ul (4.70-6.10) Hemoglobin 12.4g/dl (14.0-18.0) Hematocrit 38.3% (42.0-52.0) Mean Corpuscular Volume 96.0fl (82.0-101.0) Mean Corpuscular Hemoglobin 31.1pg (29.0-33.0) Mean Corpuscular Hemoglobin Concent 32.4g/dl (32.0-37.0) Red Cell Distribution Width 12.4% (11.5-14.5) Platelet Count 83816^3/UL (140-415) Mean Platelet Volume 9.8fl (7.4-10.4) Neutrophils % 61.5% (39.0-77.0) Lymphocytes % 20.2% (15.0-51.0) Monocytes % 14.6% (0.0-11.0) Eosinophils % 3.3% (0.0-7.0) Basophils % 0.2% (0.0-2.0) Nucleated Red Blood Cells % 0.0/100WBC (0.0-0.0) Neutrophils # 7.710^3/ul (1.6-7.5) Lymphocytes # 2.510^3/ul (0.8-2.9) Monocytes # 1.810^3/ul (0.3-0.9) Eosinophils # 0.410^3/ul (0.0-0.5) Basophils # 0.010^3/ul (0.0-0.1) Nucleated Red Blood Cells # 0.010^3/ul (0.0-0.0) Sodium Level 133mmol/L (135-144) Potassium Level 4.3mmol/L (3.5-5.1) Chloride Level 103mmol/L (97-110) Carbon Dioxide Level 26mmol/L (21-31) Anion Gap 8 (8-16) Blood Urea Nitrogen 12mg/dl (7-20) Creatinine 0.79mg/dl (0.61-1.24) Glucose Level 120mg/dl (70-220) Lactic Acid Level 0.8mmol/L (0.5-2.2) Calcium Level 8.5mg/dl (8.4-10.2) Phosphorus Level 3.2mg/dl (2.5-4.9) Magnesium Level 2.1mg/dl (1.7-2.5) Total Bilirubin 0.5mg/dl (0.2-1.3) Direct Bilirubin 0.00mg/dl (0.00-0.20) Indirect Bilirubin 0.5mg/dl (0-1.1) Aspartate Amino Transf (AST/SGOT) 33IU/L (15-46) Alanine Aminotransferase (ALT/SGPT) 37IU/L (13-69) Alkaline Phosphatase 95IU/L (42-121) B-Type Natriuretic Peptide 257PG/ML (0-450) Total Protein 6.9g/dl (6.1-8.1) Albumin 3.3g/dl (3.3-4.9) Globulin 3.60g/dl (1.3-3.2) Albumin/Globulin Ratio 0.91 LBOITO GARRISON M.D. May 29, 2016 18:52
[2016-05-29 19:13] VITALS: BP 155/73; RESP 16
--- NOTE | 2016-05-29 22:12 | PN ---
Date/Time of Note Date/Time of Note DATE: 05/28/16 TIME: 09:07 Assessment/Plan Lines/Catheters IV Catheter Type (from Nrsg): Saline Lock Crouch in Place (from Nrsg): No Assessment/Plan Chief Complaint/Hosp Course Updated Clinical Summary: A very pleasant 75-year-old gentleman with comorbid issues of coronary artery disease and previous myocardial infarction, BMI of 33.3, and history of colonic obstruction due to diverticulitis status post emergency surgery at [facility] on 10/17/2013 where he underwent laparoscopic converted to open sigmoid colectomy with on-table lavage and primary anastomosis. He did reasonably well after this operation, although, he had a wound infection which we treated with dressing changes postoperatively. The patient subsequent to this has developed a bulge around the incision which on a CT scan of the abdomen and pelvis that was done on 05/18/2014 showed a small midline ventral pelvic hernia extending into the lower inferior pelvic pannus containing mesenteric fat as well as a loop of bowel without obstruction, incarceration or strangulation. Note that there was also no mass or lymphadenopathy and the sigmoid colon area appeared to be clean. There was also markedly enlarged prostate gland, which has been stable over time. The patient originally saw Dr. Luke Martinez from [facility] in May 2014 where recommendation was made for surgical repair. Subsequent to this, the patient did not have an operation and presented electively to the office for further discussions about possible surgical repair. S/p an uncomplicated but somewhat complex laparoscopic converted to open repair of ventral incisional hernia of the most caudal portion of the patient's incision using retrorectus approach with mesh reinforcement with findings of 3 x 3 cm defect but in the lower rectus area requiring complex repair on 05/26/16 at [facility]. Patient underwent an otherwise uncomplicated but somewhat complex laparoscopic converted to open repair of ventral incisional hernia of the most caudal portion of the patient's incision using retrorectus approach with mesh reinforcement with findings of 3 x 3 cm defect but in the lower rectus area requiring complex repair on 05/26/16 at [facility].. For a detailed report, please see my op note from same date. Post op, patient did very well without any evidence for major post-operative complication or wound problems. By the time of discharge, patient was tolerating a regular diet, had adequate pain control on oral pain medications, had shown return of bowel activity and was clinically stable. He is therefore being discharged today. In addition to his home meds, I wrote him for: 1. Durham (5/325) 60 tabs and no refill 2. Colace 25 and 2 3. Dulcolax 10 and 3 COMORBIDITIES: 1. Coronary artery disease with chronic ischemic heart disease without any evidence of ischemia or CHF symptoms. He was deemed eligible to undergo herniorrhaphy with low cardiac risk. Had a normal stress echo in 2015. 2. Chronic ischemic heart disease which is stable with medications. 3. Essential hypertension. 4. Hyperlipidemia. 5. Chronic obstructive pulmonary disease. 6. Chronic kidney disease stage II with GFR 60 to 89 mL per minute. 7. History of above-mentioned bowel obstruction due to diverticulitis, status post laparoscopic converted to open sigmoid colectomy with on-table lavage and primary anastomosis on 10/17/2013 at [facility] by me, complicated by incisional infection which was treated with dressing changes and secondary intention healing and then complicated within about a year with incisional hernia which has been symptomatic, but rather stable over time. 8. BMI 33.3. 9. History of diverticulosis in the past. 10. History of anemia. 11. S/p an uncomplicated but somewhat complex laparoscopic converted to open repair of ventral incisional hernia of the most caudal portion of the patient's incision using retrorectus approach with mesh reinforcement with findings of 3 x 3 cm defect but in the lower rectus area requiring complex repair on 05/26/16 at [facility]. His discharge instructions include the following: "Please call [phone] if any of fever, nausea, vomiting, discharge from wound, wound redness, increase or sudden pain, blood in stool or vomit, or any other unusual signs or symptoms. Also, please call the same number in a few days to schedule an appointment for your follow up visit. Patient may remove dressings tomorrow. Showers OK starting tomorrow. No swimming , hot tub or bath for 2 weeks. No lifting more than 25 lbs for 8 weeks." ASSESSMENT AND PLAN: A 75-year-old male with past medical history of coronary artery disease, hypertension, high cholesterol, chronic obstructive pulmonary disease, prior bowel obstruction from diverticulitis, who is: 1. Status post open ventral incisional hernia repair, postop day # 3. Continue current medical management per primary care team including pain control medications, physical therapy. 2. Essential hypertension - in high nL range. -Continue losartan and Coreg. 3. History of coronary artery disease. Continue to monitor for now. 4. History of chronic obstructive pulmonary disease. DuoNeb p.r.n. 5. Leukocytosis, likely reactive secondary to the surgery. Ua and Ucx neg thus far. But + fever last night 100.3 - will get ID consult. - continue to monitor for now. 6. Gastrointestinal prophylaxis: Pepcid. 7. Deep venous thrombosis prophylaxis: Lovenox. 8. High cholesterol. Continue statin. We will continue to follow along with you. Problems: Assessment/Plan [facility] Progress Note (late entry) Date of Service: 05/28/16 Today's Impression & Plan: Overall stable and improved. Pain control improved, but not optimal. WBC decreasing and no tachy, no fevers, and primarily monocyte elevation. + bowel activity, and less distended. Urine culture negative. With above assessment, I've recommended the following for today: 1. Keep inhouse 2. Labs in am 3. Increase activity 4. Increase ICS Thank you again for your great care of this very pleasant patient and wonderful family. If there are any questions, please feel free to call me at [phone]. TOTAL VISIT TIME: 20 minutes of which more than half was spent in [id number] discussion with the patient, possibly including family, as well as coordination of care between multiple physicians and providers. Disclaimer: Inadvertent spelling or grammatical errors are likely due to EHR/ dictation software use and do not reflect on the overall quality of patient care. Updated Clinical Summary: A very pleasant 75-year-old gentleman with comorbid issues of coronary artery disease and previous myocardial infarction, BMI of 33.3, and history of colonic obstruction due to diverticulitis status post emergency surgery at [facility] on 10/17/2013 where he underwent laparoscopic converted to open sigmoid colectomy with on-table lavage and primary anastomosis. He did reasonably well after this operation, although, he had a wound infection which we treated with dressing changes postoperatively. The patient subsequent to this has developed a bulge around the incision which on a CT scan of the abdomen and pelvis that was done on 05/18/2014 showed a small midline ventral pelvic hernia extending into the lower inferior pelvic pannus containing mesenteric fat as well as a loop of bowel without obstruction, incarceration or strangulation. Note that there was also no mass or lymphadenopathy and the sigmoid colon area appeared to be clean. There was also markedly enlarged prostate gland, which has been stable over time. The patient originally saw Dr. Luke Martinez from [facility] in May 2014 where recommendation was made for surgical repair. Subsequent to this, the patient did not have an operation and presented electively to the office for further discussions about possible surgical repair. S/p an uncomplicated but somewhat complex laparoscopic converted to open repair of ventral incisional hernia of the most caudal portion of the patient's incision using retrorectus approach with mesh reinforcement with findings of 3 x 3 cm defect but in the lower rectus area requiring complex repair on 05/26/16 at [facility]. COMORBIDITIES: 1. Coronary artery disease with chronic ischemic heart disease without any evidence of ischemia or CHF symptoms. He was deemed eligible to undergo herniorrhaphy with low cardiac risk. Had a normal stress echo in 2014. 2. Chronic ischemic heart disease which is stable with medications. 3. Essential hypertension. 4. Hyperlipidemia. 5. Chronic obstructive pulmonary disease. 6. Chronic kidney disease stage II with GFR 60 to 89 mL per minute. 7. History of above-mentioned bowel obstruction due to diverticulitis, status post laparoscopic converted to open sigmoid colectomy with on-table lavage and primary anastomosis on 10/17/2013 at [facility] by me, complicated by incisional infection which was treated with dressing changes and secondary intention healing and then complicated within about a year with incisional hernia which has been symptomatic, but rather stable over time. 8. BMI 33.3. 9. History of diverticulosis in the past. 10. History of anemia. 11. S/p an uncomplicated but somewhat complex laparoscopic converted to open repair of ventral incisional hernia of the most caudal portion of the patient's incision using retrorectus approach with mesh reinforcement with findings of 3 x 3 cm defect but in the lower rectus area requiring complex repair on 05/26/16 at [facility]. Subjective: No major events or complaints other than above; + incisional abd pain and under better control with medications; no further nausea and no vomiting; no diarrhea ; no sob or cp; + flatus; + BM and normal; + activity Objective: Vitals: See below Exam: GENERAL: On exam, the patient was laying in bed and appeared to be comfortable and in no acute distress. ABDOMEN: Soft, nontender and nondistended. Incisions are clean, dry and intact without any evidence of erythema, edema, discharge, or hernia. There are no peritoneal signs or guarding. SKIN: Skin appears to be pink and feels warm to touch. NEUROLOGIC: Patient is awake, alert, and follows commands appropriately. Exam/Review of Systems Vital Signs Vitals Vital Signs Date Time Temp Pulse Resp B/P Pulse Ox O2 Delivery O2 Flow Rate FiO2 05/29/16 19:13 98.7 91 16 155/73 93 05/29/16 07:54 Nasal Cannula 2.0 Intake and Output 05/28/16 05/28/16 05/29/16 15:00 23:00 07:00 Intake Total 1300 ml 1150 ml Output Total 750 ml 1100 ml Balance 550 ml 50 ml Results Result Diagram: 05/29/16 0435 05/29/16 0435 LOBITO GARRISON M.D. May 29, 2016 22:12
[2016-05-30] MEDS ORDERED: LOSARTAN 50 MG TAB PO SCH (09:00)
== END 2016-05-29 20:55 | disposition home or self-care (01) | DRG 355 ==
LOC: REC 07:15 → INTOOBSV 07:15 → EDSTATUS 09:00 → OBSVTOIN 15:45 → MS1 18:30
PROVIDERS: ADMIT Transplant Surgery; ATTEND Transplant Surgery
PROC: 0WJF4ZZ Inspection of Abdominal Wall, Percutaneous Endoscopic Approach (ICD-10-PCS; 2016-05-25)
PROC: 0WUF0KZ Supplement Abdominal Wall with Nonautologous Tissue Substitute, Open Approach (ICD-10-PCS; principal; 2016-05-25 09:00)
DX: K43.2 Incisional hernia without obstruction or gangrene (principal); J44.9 Chronic obstructive pulmonary disease, unspecified; I12.9 Hypertensive chronic kidney disease with stage 1 through stage 4 chronic kidney disease, or unspecified chronic kidney disease; D72.829 Elevated white blood cell count, unspecified; I25.10 Atherosclerotic heart disease of native coronary artery without angina pectoris; Z87.891 Personal history of nicotine dependence; N18.2 Chronic kidney disease, stage 2 (mild); K21.9 Gastro-esophageal reflux disease without esophagitis; I25.2 Old myocardial infarction; N40.0 Benign prostatic hyperplasia without lower urinary tract symptoms; Z79.82 Long term (current) use of aspirin; Z90.49 Acquired absence of other specified parts of digestive tract; E78.5 Hyperlipidemia, unspecified; Z87.19 Personal history of other diseases of the digestive system; Z86.2 Personal history of diseases of the blood and blood-forming organs and certain disorders involving the immune mechanism; Z53.31 Laparoscopic surgical procedure converted to open procedure; Z95.5 Presence of coronary angioplasty implant and graft
CPT/HCPCS: 80048; 80053; 81001; 81003; 83605; 83735; 83880; 84100; 85025; 85610; 85730; 87086; 99217; C1781; G0378; J0360; J0461; J0690; J1170; J1650; J2405; J2710; J3010; J3480; J7050

== ENCOUNTER 2016-06-07 14:30 | Outpatient (CLI) | payer OTHER ==
[~2016-06-07] VITALS: Ht 170.2 cm; Wt 92.7 kg
[~2016-06-07 14:30] MED LIST changes: -CEFAZOLIN 2 GM/50 ML (PMX) 50 ML IVPB SCH; -ROCURONIUM 50 MG INJ ONE
[2016-06-07 14:33] VITALS: BP 128/75; PULSE 82; RESP 18; Ht 170.2 cm; Wt 92.7 kg
--- NOTE | 2016-06-07 15:48 | PN ---
Date/Time of Note Date/Time of Note DATE: 06/07/16 TIME: 15:43 Assessment/Plan Assessment/Plan Assessment/Plan [facility] Progress Note Date of Service: 06/07/16 Today's Impression & Plan: Overall stable and improved, but likely issues with wound seroma. No evidence of infection or other major complications. Chronic cough since discharge. CT will assist with management. With above assessment, I've recommended the following for today: 1. CT chest/abd/pelvis 2. F/u after above with labs, if indicated by above or clinically indicated with new symptoms Thank you again for your great care of this very pleasant patient and wonderful family. If there are any questions, please feel free to call me at [phone]. TOTAL VISIT TIME: 20 minutes of which more than half was spent in [id number] discussion with the patient, possibly including family, as well as coordination of care between multiple physicians and providers. Disclaimer: Inadvertent spelling or grammatical errors are likely due to EHR/ dictation software use and do not reflect on the overall quality of patient care. Updated Clinical Summary: A very pleasant 75-year-old gentleman with comorbid issues of coronary artery disease and previous myocardial infarction, BMI of 33.3, and history of colonic obstruction due to diverticulitis status post emergency surgery at [facility] on 10/17/2013 where he underwent laparoscopic converted to open sigmoid colectomy with on-table lavage and primary anastomosis. He did reasonably well after this operation, although, he had a wound infection which we treated with dressing changes postoperatively. The patient subsequent to this has developed a bulge around the incision which on a CT scan of the abdomen and pelvis that was done on 05/18/2014 showed a small midline ventral pelvic hernia extending into the lower inferior pelvic pannus containing mesenteric fat as well as a loop of bowel without obstruction, incarceration or strangulation. Note that there was also no mass or lymphadenopathy and the sigmoid colon area appeared to be clean. There was also markedly enlarged prostate gland, which has been stable over time. The patient originally saw Dr. Luke Martinez from [facility] in May 2014 where recommendation was made for surgical repair. Subsequent to this, the patient did not have an operation and presented electively to the office for further discussions about possible surgical repair. S/p an uncomplicated but somewhat complex laparoscopic converted to open repair of ventral incisional hernia of the most caudal portion of the patient's incision using retrorectus approach with mesh reinforcement with findings of 3 x 3 cm defect but in the lower rectus area requiring complex repair on 05/26/16 at [facility]. COMORBIDITIES: 1. Coronary artery disease with chronic ischemic heart disease without any evidence of ischemia or CHF symptoms. He was deemed eligible to undergo herniorrhaphy with low cardiac risk. Had a normal stress echo in 2015. 2. Chronic ischemic heart disease which is stable with medications. 3. Essential hypertension. 4. Hyperlipidemia. 5. Chronic obstructive pulmonary disease. 6. Chronic kidney disease stage II with GFR 60 to 89 mL per minute. 7. History of above-mentioned bowel obstruction due to diverticulitis, status post laparoscopic converted to open sigmoid colectomy with on-table lavage and primary anastomosis on 10/17/2013 at [facility] by me, complicated by incisional infection which was treated with dressing changes and secondary intention healing and then complicated within about a year with incisional hernia which has been symptomatic, but rather stable over time. 8. BMI 33.3. 9. History of diverticulosis in the past. 10. History of anemia. 11. S/p an uncomplicated but somewhat complex laparoscopic converted to open repair of ventral incisional hernia of the most caudal portion of the patient's incision using retrorectus approach with mesh reinforcement with findings of 3 x 3 cm defect but in the lower rectus area requiring complex repair on 05/26/16 at [facility]. Subjective: No major events or complaints other than above issues with clear/pink fluid drainage intermittently from his wound; no fever; no chills; no abdominal pain; no nausea or vomiting; not taking any pain meds; + BM's and normal; no sob or cp , but ongoing cough issues since discharge; + flatus; + activity Objective: Vitals: See below Exam: GENERAL: On exam, the patient was laying in bed and appeared to be comfortable and in no acute distress. ABDOMEN: Soft, nontender and nondistended. Incision clean, dry and intact without any evidence of erythema, edema, discharge, or hernia. No expressible fluid. There are no peritoneal signs or guarding. SKIN: Skin appears to be pink and feels warm to touch. NEUROLOGIC: Patient is awake, alert, and follows commands appropriately. Exam/Review of Systems Vital Signs Vitals Vital Signs Date Time Temp Pulse Resp B/P Pulse Ox O2 Delivery O2 Flow Rate FiO2 06/07/16 14:33 98.8 82 18 128/75 96 Room Air LOBITO GARRISON M.D. Jun 07, 2016 15:47
== END 2016-06-07 16:57 | disposition home or self-care (01) ==
LOC: HPC 14:30
PROVIDERS: ATTEND Transplant Surgery
DX: Z09 Encounter for follow-up examination after completed treatment for conditions other than malignant neoplasm (principal); Z87.19 Personal history of other diseases of the digestive system; I25.10 Atherosclerotic heart disease of native coronary artery without angina pectoris; I25.9 Chronic ischemic heart disease, unspecified; I10 Essential (primary) hypertension; J44.9 Chronic obstructive pulmonary disease, unspecified; I12.9 Hypertensive chronic kidney disease with stage 1 through stage 4 chronic kidney disease, or unspecified chronic kidney disease; N18.2 Chronic kidney disease, stage 2 (mild); R05 Cough; I25.2 Old myocardial infarction
CPT/HCPCS: G0463

== ENCOUNTER 2016-07-12 11:32 | Outpatient (CLI) | payer OTHER ==
[~2016-07-12] VITALS: Ht 170.2 cm; Wt 97.3 kg
[2016-07-12 11:32] VITALS: BP 175/77; PULSE 75; RESP 18; Ht 170.2 cm; Wt 97.3 kg
--- NOTE | 2016-07-12 14:19 | PN ---
Date/Time of Note Date/Time of Note DATE: 07/12/16 TIME: 14:12 Assessment/Plan Assessment/Plan Assessment/Plan [facility] Progress Note Date of Service: 07/12/16 Today's Impression & Plan: Overall stable and improved significantly with no further issues with wound seroma. No evidence of infection or other major complications. Chronic cough improved since discharge. Abd CT on 06/08/16 showed seroma as the major finding and no other concerning features such as recurrent hernia. Patient should continue to heal over the next few months. With above assessment, I've recommended the following for today: 1. F/u with PCP 2. F/u with us prn Thank you again for your great care of this very pleasant patient and wonderful family. If there are any questions, please feel free to call me at [phone]. TOTAL VISIT TIME: 20 minutes of which more than half was spent in [id number] discussion with the patient, possibly including family, as well as coordination of care between multiple physicians and providers. Disclaimer: Inadvertent spelling or grammatical errors are likely due to EHR/ dictation software use and do not reflect on the overall quality of patient care. Updated Clinical Summary: A very pleasant 75-year-old gentleman with comorbid issues of coronary artery disease and previous myocardial infarction, BMI of 33.3, and history of colonic obstruction due to diverticulitis status post emergency surgery at [facility] on 10/17/2013 where he underwent laparoscopic converted to open sigmoid colectomy with on-table lavage and primary anastomosis. He did reasonably well after this operation, although, he had a wound infection which we treated with dressing changes postoperatively. The patient subsequent to this has developed a bulge around the incision which on a CT scan of the abdomen and pelvis that was done on 05/18/2014 showed a small midline ventral pelvic hernia extending into the lower inferior pelvic pannus containing mesenteric fat as well as a loop of bowel without obstruction, incarceration or strangulation. Note that there was also no mass or lymphadenopathy and the sigmoid colon area appeared to be clean. There was also markedly enlarged prostate gland, which has been stable over time. The patient originally saw Dr. Luke Martinez from [facility] in May 2014 where recommendation was made for surgical repair. Subsequent to this, the patient did not have an operation and presented electively to the office for further discussions about possible surgical repair. S/p an uncomplicated but somewhat complex laparoscopic converted to open repair of ventral incisional hernia of the most caudal portion of the patient's incision using retrorectus approach with mesh reinforcement with findings of 3 x 3 cm defect but in the lower rectus area requiring complex repair on 05/26/16 at [facility]. Abd CT on 06/08/16 showed seroma as the major finding and no other concerning features such as recurrent hernia. COMORBIDITIES: 1. Coronary artery disease with chronic ischemic heart disease without any evidence of ischemia or CHF symptoms. He was deemed eligible to undergo herniorrhaphy with low cardiac risk. Had a normal stress echo in 2015. 2. Chronic ischemic heart disease which is stable with medications. 3. Essential hypertension. 4. Hyperlipidemia. 5. Chronic obstructive pulmonary disease. 6. Chronic kidney disease stage II with GFR 60 to 89 mL per minute. 7. History of above-mentioned bowel obstruction due to diverticulitis, status post laparoscopic converted to open sigmoid colectomy with on-table lavage and primary anastomosis on 10/17/2013 at [facility] by me, complicated by incisional infection which was treated with dressing changes and secondary intention healing and then complicated within about a year with incisional hernia which has been symptomatic, but rather stable over time. 8. BMI 33.3. 9. History of diverticulosis in the past. 10. History of anemia. 11. S/p an uncomplicated but somewhat complex laparoscopic converted to open repair of ventral incisional hernia of the most caudal portion of the patient's incision using retrorectus approach with mesh reinforcement with findings of 3 x 3 cm defect but in the lower rectus area requiring complex repair on 05/26/16 at [facility]. Subjective: No major events or complaints. No further fluid drainage from his wound; no fever; no chills; no sig abdominal pain (still has some discomfort to the right of the incision in the lower aspect); no nausea or vomiting; not taking any pain meds; + BM's and normal; no sob or cp, and no mention of chronic cough issues; + flatus; + activity Objective: Vitals: See below Exam: GENERAL: On exam, the patient was sitting in a chair and appeared to be comfortable and in no acute distress. ABDOMEN: Soft, nontender and nondistended. Incision clean, dry and intact without any evidence of erythema, edema, discharge, or hernia. No expressible fluid. There are no peritoneal signs or guarding. SKIN: Skin appears to be pink and feels warm to touch. NEUROLOGIC: Patient is awake, alert, and follows commands appropriately. Exam/Review of Systems Vital Signs Vitals Vital Signs Date Time Temp Pulse Resp B/P Pulse Ox O2 Delivery O2 Flow Rate FiO2 07/12/16 11:32 97.9 75 18 175/77 94 Room Air LOBITO GARRISON M.D. July 12, 2016 14:19
== END 2016-07-12 16:52 | disposition home or self-care (01) ==
LOC: HPC 11:32
PROVIDERS: ATTEND Transplant Surgery
DX: Z48.815 Encounter for surgical aftercare following surgery on the digestive system (principal); E78.5 Hyperlipidemia, unspecified; J44.9 Chronic obstructive pulmonary disease, unspecified; I12.9 Hypertensive chronic kidney disease with stage 1 through stage 4 chronic kidney disease, or unspecified chronic kidney disease; N18.2 Chronic kidney disease, stage 2 (mild); I25.10 Atherosclerotic heart disease of native coronary artery without angina pectoris; I25.9 Chronic ischemic heart disease, unspecified; Z87.19 Personal history of other diseases of the digestive system
CPT/HCPCS: G0463